=== PATIENT | male | born 1970 | race Caucasian/White ===

== ENCOUNTER 2017-09-27 12:48 | Observation (INO) ==
--- NOTE | 2017-09-27 13:05 | Emergency Department Note ---
Disposition Clinical Impression: Thrombocytopenia, Abnormal laboratory test result Cirrhosis Qualifiers: Hepatic cirrhosis type: unspecified hepatic cirrhosis Change in mental status Qualifiers: Altered mental status type: disorientation Qualified Code(s): R41.0 - Disorientation, unspecified Disposition: Admitted As Inpatient Condition: Good Referrals: NONE,PCP [Non-Partnered Physician] - Forms: ED Satisfaction Letter Time of Disposition: 14:45 Neuro HPI - General Chief Complaint: ED Neuro Symptoms/Deficit Stated Complaint: trouble remembering stuff Time Seen by Provider: 09/27/17 13:05 Source: patient, family Limitations: other Nursing Notes Reviewed: Yes Vital Signs Reviewed: Yes - History of Present Illness HPI Narrative: Patient states that he was hospitalized last week discharged Wednesday for pancreatitis. Had been seen here earlier. Was told he has cirrhosis, mild. Remote alcohol use not used for years. Other drugs. Discharged on Zofran and omeprazole. states he is just talks lower his response times her down he's not remembering things. Onset of Symptoms Date: 09/25/17 Symptom Onset Unknown: No Symptoms Improving: No Improves with: none Worsens with: none Context: gradual onset Associated symptoms: Reports: confusion. Denies: cough, diaphoresis, fever/ chills, headaches, loss of appetite, malaise, nausea/vomiting, shortness of breath, syncope, weakness Treatments Prior to Arrival: none - Related Data Home Medications: Previous Rx's Medication Instructions Recorded Omeprazole [PriLOSEC] 40 mg PO DAILY #30 cap 09/24/17 Ondansetron HCl [Zofran] 4 mg PO Q8HR PRN #15 tablet 09/24/17 Allergies/Adverse Reactions: Allergies Allergy/AdvReac Type Severity Reaction Status Date / Time No Known Allergies Allergy Verified 09/27/17 12:50 All systems ED: reviewed and negative except as stated. Constitutional: Denies: fever, chills Eyes: Denies: vision change ENT ED: Denies: throat pain Cardiovascular: Denies: chest pain, palpitations Respiratory: Denies: cough, dyspnea Gastrointestinal: Denies: abdominal pain, nausea, vomiting Genitourinary: Denies: dysuria Integumentary: Denies: rash Neurological: Reports: confusion. Denies: headache, numbness, paresthesias Endocrine: Reports: fatigue Hematological/Lymphatic: Denies: easy bleeding, easy bruising Past Medical History - Past Medical History Medical history: Reports: no medical history Surgical history: Reports: no surgical history Psychiatric history: Reports: no psych history - Social History Smoking Status: Never smoker Smokeless Tobacco Status: No Alcohol use: Reports: rarely Drug use: Reports: none Physical Exam - General Limitations: other General appearance: alert - Eye Eye exam: Present: EOMI. Absent: scleral icterus, conjunctival injection - ENT ENT exam: normal oropharynx, mucous membranes moist - Respiratory Respiratory exam: Present: normal lung sounds bilaterally. Absent: wheezes, stridor - Cardiovascular Cardiovascular exam: Present: regular rate, normal rhythm - Abdominal Exam Abdominal exam: Present: soft, Non-Tender. Absent: guarding, rebound - Extremities Exam Extremities exam: Absent: tenderness, pedal edema, calf tenderness - Back Exam Back exam: Absent: tenderness - Neurological Exam Neurological exam: Present: alert, CN II-XII intact. Absent: oriented X3 ( Oriented to person place not time) - Psychiatric Psychiatric exam: Absent: normal mood, depressed - Skin Skin exam: Present: warm. Absent: diaphoresis Course Course Narrative: Discussed with Dr. Gomez will admit the patient. Labs lactulose. Vital Signs Temperature 98.1 F 09/27/17 12:50 Pulse Rate 89 09/27/17 12:50 Respiratory Rate 17 09/27/17 12:50 Blood Pressure 166/92 09/27/17 12:50 O2 Sat by Pulse Oximetry 95 09/27/17 12:50 Temperature 98.1 F 09/27/17 12:50 Pulse Rate 90 09/27/17 14:15 Respiratory Rate 17 09/27/17 14:15 Blood Pressure 173/83 09/27/17 14:15 O2 Sat by Pulse Oximetry 96 09/27/17 14:15 Oxygen Delivery Oxygen Delivery Room Air Neuro Symptoms/Deficit - Lab Data Result diagrams: 09/27/17 13:40 09/27/17 13:40 Lab Results 09/27/17 09/27/17 09/27/17 Range/Units 13:40 13:40 13:40 WBC 6.7 (4.3-11.1) K/mcL RBC 4.17 L (4.19-5.50) M/mcL Hgb 14.4 D (12.9-16.9) g/dL Hct 41.8 (37.5-50.1) % MCV 100.2 H (83.0-100.0) fL MCH 34.5 H (28.0-33.3) pg MCHC 34.4 (31.6-35.5) g/dL RDW 14.6 H (11.5-14.5) % Plt Count 120 L (140-400) K/mcL MPV 9.9 (9.4-12.4) fL Immature Gran % 0.3 (0-4) % Seg Neutrophils % 54.6 % Lymphocytes % 26.4 % Monocytes % 9.5 % Eosinophils % 7.6 % Basophils % 1.6 % Neutrophils # 3.7 (1.6-8.9) K/mcL Lymphocytes # 1.8 (0.6-4.6) K/mcL Monocytes # 0.6 (0.0-1.3) K/mcL Eosinophils # 0.5 (0.0-0.6) K/mcL Basophils # 0.1 (0.0-0.2) K/mcL PT (9.4-12.1) Seconds INR APTT (26.0-36.0) Seconds Sodium 140 (136-145) mEq/L Potassium 3.7 (3.5-5.1) mEq/L Chloride 109 H (98-107) mEq/L Carbon Dioxide 22 L (23-29) mEq/L BUN 7 (6-20) mg/dL Creatinine 0.55 L (0.70-1.30) mg/dL Est GFR ( Amer) > 60 (> 60) Est GFR (Non-Af Amer) > 60 (> 60) BUN/Creatinine Ratio 13 (6-26) Glucose 120 H (70-105) mg/dL Calculated Osmolality 289 (280-300) Calcium 9.5 (8.6-10.3) mg/dL Total Bilirubin 1.4 H (0.3-1.0) mg/dL Direct Bilirubin 0.3 H (0.0-0.2) mg/dL Indirect Bilirubin 1.1 (0.0-1.2) mg/dL AST 87 H (13-39) Units/L ALT 55 H (7-52) Units/L Alkaline Phosphatase 170 H (34-104) Units/L Ammonia (16-53) mcmol/L Serum Total Protein 7.6 (6.4-8.9) g/dL Albumin 3.2 L (3.5-5.7) g/dL Globulin 4.4 H (2.4-3.5) g/dL Albumin/Globulin Ratio 0.7 L (1.1-2.2) Lipase (11-82) Units/L 09/27/17 09/27/17 09/27/17 Range/Units 13:40 13:40 13:40 WBC (4.3-11.1) K/mcL RBC (4.19-5.50) M/mcL Hgb (12.9-16.9) g/dL Hct (37.5-50.1) % MCV (83.0-100.0) fL MCH (28.0-33.3) pg MCHC (31.6-35.5) g/dL RDW (11.5-14.5) % Plt Count (140-400) K/mcL MPV (9.4-12.4) fL Immature Gran % (0-4) % Seg Neutrophils % % Lymphocytes % % Monocytes % % Eosinophils % % Basophils % % Neutrophils # (1.6-8.9) K/mcL Lymphocytes # (0.6-4.6) K/mcL Monocytes # (0.0-1.3) K/mcL Eosinophils # (0.0-0.6) K/mcL Basophils # (0.0-0.2) K/mcL PT 14.6 H (9.4-12.1) Seconds INR 1.3 APTT 26.2 (26.0-36.0) Seconds Sodium (136-145) mEq/L Potassium (3.5-5.1) mEq/L Chloride (98-107) mEq/L Carbon Dioxide (23-29) mEq/L BUN (6-20) mg/dL Creatinine (0.70-1.30) mg/dL Est GFR ( Amer) (> 60) Est GFR (Non-Af Amer) (> 60) BUN/Creatinine Ratio (6-26) Glucose (70-105) mg/dL Calculated Osmolality (280-300) Calcium (8.6-10.3) mg/dL Total Bilirubin (0.3-1.0) mg/dL Direct Bilirubin (0.0-0.2) mg/dL Indirect Bilirubin (0.0-1.2) mg/dL AST (13-39) Units/L ALT (7-52) Units/L Alkaline Phosphatase (34-104) Units/L Ammonia 119 H (16-53) mcmol/L Serum Total Protein (6.4-8.9) g/dL Albumin (3.5-5.7) g/dL Globulin (2.4-3.5) g/dL Albumin/Globulin Ratio (1.1-2.2) Lipase 55 (11-82) Units/L - Radiology Data Radiology results reviewed: Yes I reviewed the patient's radiology results. HISTORY: ORDERING SYSTEM PROVIDED HISTORY: trauma with headaches FINDINGS: BRAIN/VENTRICLES: There is no acute intracranial hemorrhage, mass effect or midline shift. No abnormal extra-axial fluid collection. The ochoa-white differentiation is maintained without evidence of an acute infarct. There is no evidence of hydrocephalus. ORBITS: The visualized portion of the orbits demonstrate no acute abnormality. SINUSES: The visualized paranasal sinuses and mastoid air cells demonstrate no acute abnormality. SOFT TISSUES/SKULL: No acute abnormality of the visualized skull or soft tissues. CT/CT head/brain wo con IMPRESSION: 1. No acute intracranial abnormality. D/ / Tylor Aguilar MD / Tylor Aguilar MD Interpreting Provider: Tylor Aguilar MD : TPA Checklist - LKW: 3-4.5 hrs Add. Warnings/Precautions Patient/family understanding: The patient/family members have been counseled and understood the risk, benefit , and alternatives of treatment.
[2017-09-27 13:45] LABS: Basophils # 0.1 K/mcL (0.0-0.2); Basophils % 1.6 %; Eosinophils # 0.5 K/mcL (0.0-0.6); Eosinophils % 7.6 %; Hematocrit 41.8 % (37.5-50.1); Hemoglobin 14.4 g/dL (12.9-16.9); Immature Granulocytes % 0.3 % (0-4); Lymphocytes # 1.8 K/mcL (0.6-4.6); Lymphocytes % 26.4 %; Mean Corpuscular HGB Conc 34.4 g/dL (31.6-35.5); Mean Corpuscular Hemoglobin 34.5 pg (28.0-33.3); Mean Corpuscular Volume 100.2 fL (83.0-100.0); Mean Platelet Volume 9.9 fL (9.4-12.4); Monocytes # 0.6 K/mcL (0.0-1.3); Monocytes % 9.5 %; Neutrophils # 3.7 K/mcL (1.6-8.9); Platelet Count 120 K/mcL (140-400); Red Blood Count 4.17 M/mcL (4.19-5.50); Red Cell Distribution Width 14.6 % (11.5-14.5); Segmented Neutrophils % 54.6 %
[2017-09-27 13:51] LABS: INR 1.3; Prothrombin Time 14.6 Seconds (9.4-12.1)
[2017-09-27 13:54] LABS: Activated Partial Thrombo Time 26.2 Seconds (26.0-36.0)
[2017-09-27 14:05] LABS: Albumin 3.2 g/dL (3.5-5.7); Albumin/Globulin Ratio 0.7 (1.1-2.2); Bilirubin,Direct 0.3 mg/dL (0.0-0.2); Bilirubin,Indirect 1.1 mg/dL (0.0-1.2); Bilirubin,Total 1.4 mg/dL (0.3-1.0); Globulin 4.4 g/dL (2.4-3.5); Total Protein 7.6 g/dL (6.4-8.9)
[2017-09-27 14:21] LABS: BUN/Creatinine Ratio 13 (6-26); Blood Urea Nitrogen 7 mg/dL (6-20); Calcium 9.5 mg/dL (8.6-10.3); Carbon Dioxide 22 mEq/L (23-29); Chloride 109 mEq/L (98-107); Glucose 120 mg/dL (70-105); Osmolality,Calculated 289 (280-300); Potassium 3.7 mEq/L (3.5-5.1); Sodium 140 mEq/L (136-145); eGFR For Non-African Americans > 60 (> 60)
[2017-09-27] MEDS ORDERED: Naloxone 0.4 MG/ML INJ IVP PRN (14:53)
[2017-09-27 16:10] LABS: Bilirubin,Urine Negative (Negative); Blood,Urine Negative (Negative); Clarity,Urine Clear (Clear); Color,Urine Yellow (Yellow); Glucose,Urine (UA) Normal (Normal); Ketones,Urine Negative (Negative); Leukocyte Esterase,Urine Negative (Negative); Nitrite,Urine Negative (Negative); Protein,Urine Negative (Neg-Trace); Urobilinogen,Urine Normal (Normal)
[2017-09-27 16:22] LABS: Amphetamine Screen,Urine Negative ng/mL (Cutoff=1000); Barbiturate Screen,Urine Negative ng/mL (Cutoff=200); Benzodiazepines Screen,Urine Positive ng/mL (Cutoff=200); Cannabinoid Screen,Urine Negative ng/mL (Cutoff = 50); Cocaine Screen,Urine Negative ng/mL (Cutoff= 300); Opiate Screen,Urine Negative ng/mL (Cutoff=300); Phencyclidine Screen,Urine Negative ng/mL (Cutoff=25)
--- NOTE | 2017-09-27 17:15 | Internal Med History&Physical ---
Date of Encounter: 09/27/17 Time of Encounter: 16:30 Assessment and Plan (1) Cirrhosis of liver Current visit: Yes Status: Acute Suspect primarily due to alcohol ingestion. Will check viral hepatitis serologies. He was started on lactulose and rifaximin for mild encephalopathy. Qualifiers: Hepatic cirrhosis type: unspecified hepatic cirrhosis Ascites presence: without ascites Qualified Code(s): K74.60 - Unspecified cirrhosis of liver (2) Macrocytosis Current visit: Yes Status: Acute Will order macrocytosis workup. (3) Hypertension Current visit: Yes Status: Acute Will start on nadolol since he has hypertension, borderline tachycardia, and documented esophageal varices. Qualifiers: Hypertension type: essential hypertension Qualified Code(s): I10 - Essential (primary) hypertension Internal Medicine - H&P: HPI Chief complaint: Confusion Admitted From: Emergency Dept Plans for Post Hospital Care: Home History of present illness: Mr. Henriquez is a 47 year old male who was brought to the emergency room after family noted him to be more confused over the preceding 1-2 days. He had been hospitalized at [facility] September 23- after presenting with abdominal discomfort and GI bleeding. CT of the abdomen/pelvis showed cirrhosis and splenomegaly with portal hypertension and esophageal varices. He had EGD 09/23/2017 which showed nonbleeding gastric erosions and esophageal varices. Abdominal ultrasound showed findings consistent with hepatic cirrhosis. He was treated medically and scheduled to follow-up with director manufacturing engineering 10/06/2017. Workup in emergency room today showed elevated ammonia level and slight confusion. He was admitted to [facility] floor for ongoing care needs. He is a fair historian and much of the history is provided by family. He has not seen a regular family physician in approximately 20 years. He has been a binge drinker since age 13. He was diagnosed with pancreatitis of uncertain etiology during his recent [facility] stay. He denies other disorders of his liver or gallbladder. He had EGD as per above. He has not had colonoscopy. Denies IV drug use history. He reports his mother was diagnosed with fatty liver disease prior to her . Past Med Surg Social Fam HX - Past Medical History Medical history: no medical history Psychiatric history: no psych history - Past Surgical History Surgical History: no surgical history - Social History Smoking Status: Never smoker Smokeless Tobacco Status: No Alcohol use: rarely Drug use: none Internal Medicine - H&P: Meds Omeprazole [PriLOSEC] 40 mg PO DAILY #30 cap 09/24/17 [Rx] Ondansetron HCl [Zofran] 4 mg PO Q8HR PRN #15 tablet 09/24/17 [Rx] 3 Allergy/AdvReac Type Severity Reaction Status Date / Time No Known Allergies Allergy Verified 09/27/17 12:50 All Systems PM: A 10-system review of systems was performed and is negative for pertinent findings except as documented above in the HPI. Review of systems: Gen.: His weight has increased approximately 50 pounds in the past year, unintentional Cardiovascular: He denies hypertension VT heart failure angina DVT or pulmonary embolus. Respiratory: He is a lifelong nonsmoker and has no documented chronic lung disease other than asthma in childhood GI: As per history of present illness : Denies hematuria dysuria or kidney stones Neurologic: He denies large distribution strokes or seizures Endocrine: He denies diabetes thyroid disease or hyperlipidemia Hematology/oncology: He had anemia in childhood. 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 He had left carpal tunnel surgery. He denies gout or other bone joint or muscle disorders. - Constitutional Vitals: Temp Pulse Resp BP Pulse Ox 97.4 F L 85 18 157/83 97 09/27/17 15:35 09/27/17 15:35 09/27/17 15:35 09/27/17 15:35 09/27/17 15:35 Exam: General: He is a well-developed overweight male lying in bed who appears in no acute distress HEENT: Head is atraumatic and normocephalic. Eyes: EOMI. There is no scleral icterus. Mouth: Mucosa is moist. Neck: Supple and nontender. There is no thyromegaly or adenopathy noted. Heart: Regular with rate approximately 100/m. Lungs: No wheezes or crackles are heard. Abdomen: Soft and nontender. No masses or guarding are noted. Extremities: There is no cyanosis edema or clubbing noted. Dorsalis pedis and posttibial pulses are trace to 1+ palpable bilaterally. Neurologic: Mental status: He is talkative and a fair historian. Cranial nerves : Smile is symmetric. Forehead wrinkles bilaterally. Tongue protrudes midline. EOMI. Motor: There is no pronator drift. There is no asterixis. Cerebellar: Finger to nose is intact bilaterally. Skin: Warm and dry. There are no malar telangiectasias seen or enlarged abdominal wall vessels. Internal Med - H&P Results - Labs CBC & Chem 7: 09/27/17 13:40 09/27/17 13:40 Labs: Urine 09/27/17 Range/Units 16:00 Urine Color Yellow (Yellow) Urine Clarity Clear (Clear) Urine pH 7.0 (5.0-8.0) pH Units Ur Specific [place] 1.020 (1.010-1.025) Urine Protein Negative (Neg-Trace) mg/dL Urine Glucose (UA) Normal (Normal) mg/dL - VTE Reasons for not Prescribing Prophylaxis: Treatment not Indicated - Low risk for VTE
[2017-09-27] MEDS: Lactulose Oral Soln 20 GM/30 ML UDC PO SCH (21:28)
[2017-09-28 06:22] LABS: Chol/HDL Ratio 4.2 (0-4.9); Magnesium 1.9 mg/dL (1.6-2.6)
[2017-09-28 08:03] LABS: Thyroid Stimulating Hormone 2.775 mcIU/mL (0.340-5.600)
[2017-09-28] MEDS: Lactulose Oral Soln 20 GM/30 ML UDC PO SCH ×2 (08:51→21:12)
[2017-09-28 12:32] LABS: Folate 11.5 ng/mL (3.0-16.0)
[2017-09-28 12:33] LABS: Vitamin B12 1028 pg/mL (250-1100)
--- NOTE | 2017-09-28 15:26 | Internal Med Progress Note ---
Date of Encounter: 09/28/17 Time of Encounter: 15:18 - Assessment and plan (1) Cirrhosis of liver Current Visit: Yes Status: Acute Assessment and plan: September 28. Hepatitis profile pending. Continue lactulose and rifaximin. Recheck labs in a.m. Qualifiers: Hepatic cirrhosis type: unspecified hepatic cirrhosis Ascites presence: without ascites Qualified Code(s): K74.60 - Unspecified cirrhosis of liver (2) Macrocytosis Current Visit: Yes Status: Acute Assessment and plan: Workup negative for pathology other than liver disease. (3) Hypertension Current Visit: Yes Status: Acute Assessment and plan: September 28. Blood pressure heart rate improved. Continue nadolol. Qualifiers: Hypertension type: essential hypertension Qualified Code(s): I10 - Essential (primary) hypertension - Subjective Interval history: September 28. He has no new complaints. - Constitutional Vitals: Temp Pulse Resp BP Pulse Ox 98.5 F 78 17 128/73 97 09/28/17 15:04 09/28/17 15:04 09/28/17 15:04 09/28/17 15:04 09/28/17 15:04 Exam: He is resting in bed and appears in no acute distress. His affect is cheerful. He answered questions with short answers appropriately. I reviewed his medications and lab results. Viral hepatitis profile is pending. Ammonia level has actually risen. Internal Medicine: Result - Labs CBC & Chem 7: 09/27/17 13:40 09/27/17 13:40 Labs: Urine 09/27/17 Range/Units 16:00 Urine Color Yellow (Yellow) Urine Clarity Clear (Clear) Urine pH 7.0 (5.0-8.0) pH Units Ur Specific [place] 1.020 (1.010-1.025) Urine Protein Negative (Neg-Trace) mg/dL Urine Glucose (UA) Normal (Normal) mg/dL - ABG Interpretation ABG results: PT/INR, D-dimer PT 14.6 Seconds (9.4-12.1) H 09/27/17 13:40 - VTE Reasons for not Prescribing Prophylaxis: Treatment not Indicated - Low risk for VTE Consult Discharge Plan - Plan Referrals: Lissette Mayberry, [employer] [Primary Care Provider] - 1 week
[2017-09-29 05:13] LABS: Hepatitis A Antibody IgM Nonreactive (Nonreactive); Hepatitis B Core IgM Nonreactive (Nonreactive); Hepatitis B Surface Antigen Nonreactive (Nonreactive); Hepatitis C Virus Antibody Nonreactive (Nonreactive)
[2017-09-29 05:38] LABS: Alanine Aminotransferase 52 Units/L (7-52); Albumin 2.9 g/dL (3.5-5.7); Albumin/Globulin Ratio 0.7 (1.1-2.2); Alkaline Phosphatase 120 Units/L (34-104); Aspartate Amino Transferase 82 Units/L (13-39); Bilirubin,Total 1.4 mg/dL (0.3-1.0); Calcium 8.8 mg/dL (8.6-10.3); Carbon Dioxide 27 mEq/L (23-29); Chloride 108 mEq/L (98-107); Glucose 140 mg/dL (70-105); Potassium 3.5 mEq/L (3.5-5.1); Sodium 137 mEq/L (136-145); Total Protein 6.9 g/dL (6.4-8.9); eGFR For Non-African Americans > 60 (> 60)
[2017-09-29 06:13] LABS: BUN/Creatinine Ratio 14 (6-26); Blood Urea Nitrogen 8 mg/dL (6-20); Osmolality,Calculated 285 (280-300)
[2017-09-29 08:37] VITALS: BP 135/74
[2017-09-29] MEDS: Lactulose Oral Soln 20 GM/30 ML UDC PO SCH (08:38)
--- NOTE | 2017-09-29 10:18 | Discharge Summary ---
Date of Encounter: 09/29/17 Time of Encounter: 10:10 - Discharge Diagnosis (1) Cirrhosis of liver Priority: Primary Status: Acute Qualifiers: Hepatic cirrhosis type: unspecified hepatic cirrhosis Ascites presence: without ascites Qualified Code(s): K74.60 - Unspecified cirrhosis of liver (2) Macrocytosis Priority: Secondary Status: Acute (3) Hypertension Priority: Secondary Status: Acute Qualifiers: Hypertension type: essential hypertension Qualified Code(s): I10 - Essential (primary) hypertension - Discharge Medications Prescriptions: Lactulose 20 gm PO BID 30 Days udc Nadolol [Corgard] 20 mg PO BID #30 tablet Rifaximin [Xifaxan] 550 mg PO BID #60 tablet Home Medications: Omeprazole [PriLOSEC] 40 mg PO DAILY #30 cap 09/24/17 [Rx] Ondansetron HCl [Zofran] 4 mg PO Q8HR PRN #15 tablet 09/24/17 [Rx] Lactulose 20 gm PO BID 30 Days udc 09/29/17 [Rx] Nadolol [Corgard] 20 mg PO BID #30 tablet 09/29/17 [Rx] Rifaximin [Xifaxan] 550 mg PO BID #60 tablet 09/29/17 [Rx] Allergies/Adverse Reactions: 3 Allergy/AdvReac Type Severity Reaction Status Date / Time No Known Allergies Allergy Verified 09/27/17 12:50 Date of admission: 09/27/17 15:15 Primary care physician: Lissette Mayberry CNP - Patient Status Disposition: Home, Self-Care Functional capacity at discharge: independent ambulation Overall status at discharge: patient is progressing back to baseline - Discharge Instructions Follow Up With: Lissette Mayberry CNP [Primary Care Provider] - 1 week - Diet and Activity Activity: resume usual activities as tolerated Diet: low fat, low cholesterol Hospital course: Mr. Henriquez is a 47 year old male who was brought to the emergency room after family noted him to be more confused over the preceding 1-2 days. He had been hospitalized at [facility] September 23- after presenting with abdominal discomfort and GI bleeding. CT of the abdomen/pelvis showed cirrhosis and splenomegaly with portal hypertension and esophageal varices. He had EGD 09/23/2017 which showed nonbleeding gastric erosions and esophageal varices. Abdominal ultrasound showed findings consistent with hepatic cirrhosis. He was treated medically and scheduled to follow-up with auto mechanic supervisor 10/06/2017. Workup in emergency room today showed elevated ammonia level and slight confusion. He was admitted to [facility] floor for ongoing care needs. Initial orders were written by the emergency room physician. I saw him on 09/27 and performed a history and physical. He was started on lactulose and rifaximin for cirrhosis with mild hepatic encephalopathy. He had clinical improvement with improved mental status and less lethargy by day of discharge. Ammonia level decreased to 107 by day of discharge. Bilirubin and LFTs remained slightly elevated. Viral hepatitis serologies returned negative. I explained the etiology of the cirrhosis was not determined at discharge. He will follow with the [place] auto mechanic supervisor as scheduled 10/06/2017. Macrocytosis workup showed normal B12, folate, and TSH. Macrocytosis is likely due to liver disease. Nadolol was started for hypertension and documented esophageal varices. This was tolerated well and he will continue this at home. He will follow with his PCP Lissette Mayberry CNP within 1 week. He will see Dr. Lester as scheduled in 1 week. I encouraged him to completely discontinue alcohol use. - Time Spent with Patient Total time spent providing and/or coordinating discharge services: - Constitutional Vitals: Temp Pulse Resp BP Pulse Ox 98.1 F 80 20 135/74 95 09/29/17 08:36 09/29/17 08:36 09/29/17 08:36 09/29/17 08:36 09/29/17 08:36 - VTE Reasons for not Prescribing Prophylaxis: Treatment not Indicated - Low risk for VTE
== END 2017-09-29 11:08 | disposition home or self-care (01) ==
LOC: EMEROOPIK 12:48 → INPPIK 12:48
PROVIDERS: ADMIT Internal Medicine; ATTEND Internal Medicine

== ENCOUNTER 2018-12-03 12:20 | Observation (INO) ==
--- NOTE | 2018-12-03 12:31 | Emergency Department Note ---
Disposition Clinical Impression: Diabetes mellitus, new onset Disposition: Admitted As Inpatient Condition: Fair Referrals: NONE,PCP [Primary Care Provider] - Forms: ED Satisfaction Letter Time of Disposition: 13:23 ( will place in observation) General Adult HPI - General Chief complaint: ED Nausea/Vomiting/Diarrhea Stated complaint: vomiting, mouth dry, freq urinations Time Seen by Provider: 12/03/18 12:30 Source: patient Mode of arrival: ambulatory Limitations: no limitations Nursing Notes Reviewed: Yes Vital Signs Reviewed: Yes - History of Present Illness HPI Narrative: 48-year-old male with 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 He also complains of retaining fluid. Patient is on lactulose for hepatic encephalopathy, and reports that he took 2 doses of his lactulose prior to coming in and that he is still feeling confused. Patient denies any chest pain or shortness of breath. He seems to be able to answer questions appropriately. Patient has been complaining of feeling thirsty nauseated. He did not know that he is a diabetic. 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 Location: other Radiation: non-radiation Consistency: intermittent Improves with: nothing Worsens with: nothing Associated symptoms: Reports: denies other symptoms Treatments Prior to Arrival: none - Related Data Home Medications Medication Instructions Recorded Confirmed Rifaximin [Xifaxan] 550 mg PO BID 10/22/17 12/03/18 Multivitamin [One Daily 1 each PO DAILY 11/10/17 12/03/18 Multivitamin] Atorvastatin Calcium [Lipitor] 20 mg PO DAILY 12/03/18 12/03/18 Bumetanide 2 mg PO BID 12/03/18 12/03/18 Escitalopram [Lexapro] 10 mg PO DAILY 12/03/18 12/03/18 Lactulose [Enulose] 60 gm PO TID 12/03/18 12/03/18 Pantoprazole Sodium [Protonix] 40 mg PO TID 12/03/18 12/03/18 Spironolactone [Aldactone] 150 mg PO BID 12/03/18 12/03/18 Zinc Gluconate 100 mg PO BID 12/03/18 12/03/18 Allergies Allergy/AdvReac Type Severity Reaction Status Date / Time No Known Allergies Allergy Verified 12/03/18 12:22 Past Medical History - Past Medical History Medical history: Reports: cirrhosis, GERD, hypertension Surgical history: Reports: orthopedic, other, other Psychiatric history: Reports: depression - Social History Smoking Status: Never smoker Smokeless Tobacco Status: No Alcohol use: Reports: none Drug use: Reports: none Course Vital Signs Temperature 98 F 12/03/18 12:24 Pulse Rate 99 12/03/18 12:24 Respiratory Rate 18 12/03/18 12:24 Blood Pressure 150/85 12/03/18 12:24 O2 Sat by Pulse Oximetry 97 12/03/18 12:24 Temperature 98 F 12/03/18 12:24 Pulse Rate 92 12/03/18 12:52 Respiratory Rate 18 12/03/18 12:30 Blood Pressure 130/65 12/03/18 12:52 O2 Sat by Pulse Oximetry 96 12/03/18 12:30 Oxygen Delivery Oxygen Delivery Room Air Medical Decision Making - Lab Data Result diagrams: 12/03/18 12:42 12/03/18 12:42 Lab Results 12/03/18 12/03/18 12/03/18 Range/Units 12:42 12:42 12:42 WBC 5.2 (4.3-11.1) K/mcL RBC 3.25 L (4.19-5.50) M/mcL Hgb 10.4 L (12.9-16.9) g/dL Hct 30.7 L (37.5-50.1) % MCV 94.5 (83.0-100.0) fL MCH 32.0 (28.0-33.3) pg MCHC 33.9 (31.6-35.5) g/dL RDW 13.6 (11.5-14.5) % Plt Count 64 L (140-400) K/mcL MPV 9.6 (9.4-12.4) fL Immature Gran % 0.6 (0-4) % Seg Neutrophils % 66.7 % Lymphocytes % 17.6 % Monocytes % 10.8 % Eosinophils % 3.3 % Basophils % 1.0 % Neutrophils # 3.5 (1.6-8.9) K/mcL Lymphocytes # 0.9 (0.6-4.6) K/mcL Monocytes # 0.6 (0.0-1.3) K/mcL Eosinophils # 0.2 (0.0-0.6) K/mcL Basophils # 0.1 (0.0-0.2) K/mcL Sodium 128 L (136-145) mEq/L Potassium 4.1 (3.5-5.1) mEq/L Chloride 93 L (98-107) mEq/L Carbon Dioxide 28 (23-29) mEq/L BUN 12 (6-20) mg/dL Creatinine 0.84 (0.70-1.30) mg/dL Est GFR ( Amer) > 60 (> 60) Est GFR (Non-Af Amer) > 60 (> 60) BUN/Creatinine Ratio 14 (6-26) Glucose 589 H* (70-105) mg/dL Calculated Osmolality 293 (280-300) Calcium 9.2 (8.6-10.3) mg/dL Total Bilirubin 2.5 H (0.3-1.0) mg/dL AST 62 H (13-39) Units/L ALT 55 H (7-52) Units/L Alkaline Phosphatase 236 H (34-104) Units/L Ammonia 79 H (16-53) mcmol/L Serum Total Protein 6.6 (6.4-8.9) g/dL Albumin 2.8 L (3.5-5.7) g/dL Globulin 3.8 H (2.4-3.5) g/dL Albumin/Globulin Ratio 0.7 L (1.1-2.2) Amylase (29-103) Units/L Lipase (11-82) Units/L Beta-Hydroxybutyric Acd (0.02-0.27) mmol/L 12/03/18 12/03/18 Range/Units 12:42 12:42 WBC (4.3-11.1) K/mcL RBC (4.19-5.50) M/mcL Hgb (12.9-16.9) g/dL Hct (37.5-50.1) % MCV (83.0-100.0) fL MCH (28.0-33.3) pg MCHC (31.6-35.5) g/dL RDW (11.5-14.5) % Plt Count (140-400) K/mcL MPV (9.4-12.4) fL Immature Gran % (0-4) % Seg Neutrophils % % Lymphocytes % % Monocytes % % Eosinophils % % Basophils % % Neutrophils # (1.6-8.9) K/mcL Lymphocytes # (0.6-4.6) K/mcL Monocytes # (0.0-1.3) K/mcL Eosinophils # (0.0-0.6) K/mcL Basophils # (0.0-0.2) K/mcL Sodium (136-145) mEq/L Potassium (3.5-5.1) mEq/L Chloride (98-107) mEq/L Carbon Dioxide (23-29) mEq/L BUN (6-20) mg/dL Creatinine (0.70-1.30) mg/dL Est GFR ( Amer) (> 60) Est GFR (Non-Af Amer) (> 60) BUN/Creatinine Ratio (6-26) Glucose (70-105) mg/dL Calculated Osmolality (280-300) Calcium (8.6-10.3) mg/dL Total Bilirubin (0.3-1.0) mg/dL AST (13-39) Units/L ALT (7-52) Units/L Alkaline Phosphatase (34-104) Units/L Ammonia (16-53) mcmol/L Serum Total Protein (6.4-8.9) g/dL Albumin (3.5-5.7) g/dL Globulin (2.4-3.5) g/dL Albumin/Globulin Ratio (1.1-2.2) Amylase 15 L (29-103) Units/L Lipase 67 (11-82) Units/L Beta-Hydroxybutyric Acd 0.21 (0.02-0.27) mmol/L
[2018-12-03 12:48] LABS: Basophils # 0.1 K/mcL (0.0-0.2); Eosinophils # 0.2 K/mcL (0.0-0.6); Eosinophils % 3.3 %; Hematocrit 30.7 % (37.5-50.1); Hemoglobin 10.4 g/dL (12.9-16.9); Immature Granulocytes % 0.6 % (0-4); Lymphocytes # 0.9 K/mcL (0.6-4.6); Lymphocytes % 17.6 %; Mean Corpuscular HGB Conc 33.9 g/dL (31.6-35.5); Mean Corpuscular Volume 94.5 fL (83.0-100.0); Mean Platelet Volume 9.6 fL (9.4-12.4); Monocytes # 0.6 K/mcL (0.0-1.3); Monocytes % 10.8 %; Neutrophils # 3.5 K/mcL (1.6-8.9); Red Blood Count 3.25 M/mcL (4.19-5.50); Red Cell Distribution Width 13.6 % (11.5-14.5); Segmented Neutrophils % 66.7 %
[2018-12-03 12:49] LABS: Platelet Count 64 K/mcL (140-400)
[2018-12-03 13:02] LABS: Amylase 15 Units/L (29-103); Lipase 67 Units/L (11-82)
[2018-12-03 13:06] LABS: Alanine Aminotransferase 55 Units/L (7-52); Albumin 2.8 g/dL (3.5-5.7); Albumin/Globulin Ratio 0.7 (1.1-2.2); Alkaline Phosphatase 236 Units/L (34-104); Aspartate Amino Transferase 62 Units/L (13-39); BUN/Creatinine Ratio 14 (6-26); Bilirubin,Total 2.5 mg/dL (0.3-1.0); Blood Urea Nitrogen 12 mg/dL (6-20); Calcium 9.2 mg/dL (8.6-10.3); Carbon Dioxide 28 mEq/L (23-29); Chloride 93 mEq/L (98-107); Globulin 3.8 g/dL (2.4-3.5); Glucose 589 mg/dL (70-105); Osmolality,Calculated 293 (280-300); Potassium 4.1 mEq/L (3.5-5.1); Sodium 128 mEq/L (136-145); Total Protein 6.6 g/dL (6.4-8.9); eGFR For Non-African Americans > 60 (> 60)
[2018-12-03] MEDS ORDERED: 0.9 % Sodium Chloride 1,000 ML IVC ONE (13:06)
[2018-12-03] MEDS ORDERED: Insulin Human Regular 10 UNIT in 0.9 % Sodium Chloride 10 ML IV ONE (13:06)
[2018-12-03] MEDS ORDERED: Naloxone 0.4 MG/ML INJ IVP PRN ×2 (13:26→14:09)
[2018-12-03] MEDS ORDERED: Ondansetron 4 MG/2 ML VIAL IVP PRN ×2 (13:26→14:09)
[2018-12-03 15:02] LABS: Bilirubin,Urine Negative (Negative); Blood,Urine Small (Negative); Clarity,Urine Clear (Clear); Color,Urine Yellow (Yellow); Glucose,Urine (UA) 500 mg/dL (Normal); Ketones,Urine Negative (Negative); Leukocyte Esterase,Urine Negative (Negative); Nitrite,Urine Negative (Negative); Protein,Urine Negative (Neg-Trace); Urobilinogen,Urine Normal (Normal)
[2018-12-03 15:23] LABS: Bacteria,Urine Few per hpf (None-Few); Granular Casts,Urine Few per lpf (None Seen); Hyaline Casts,Urine Few per lpf (None-Few); RBC,Urine 0-3 per hpf (0-3); Squamous Epithelial Cell,Urine Few per lpf (None-Few); WBC,Urine 0-3 per hpf (0-3)
[2018-12-03] MEDS: Lactulose Oral Soln 20 GM/30 ML UDC PO SCH ×2 (17:02→21:09)
--- NOTE | 2018-12-03 18:25 | Internal Med History&Physical ---
Date of Encounter: 12/03/18 Time of Encounter: 17:30 Assessment and Plan (1) Diabetes mellitus, new onset Current visit: Yes Status: Acute Duration unknown. He will be started on metformin and Januvia. Accu-Cheks with SSI will be ordered. (2) Cirrhosis of liver Current visit: No Status: Acute Continue Xifaxan and lactulose. Qualifiers: Hepatic cirrhosis type: unspecified hepatic cirrhosis Ascites presence: with ascites Qualified Code(s): K74.60 - Unspecified cirrhosis of liver; R18.8 - Other ascites (3) Hypertension Current visit: No Status: Acute Continue Aldactone. Bumex will be given IV initially to improve diuresis. Qualifiers: Hypertension type: essential hypertension Qualified Code(s): I10 - Essential (primary) hypertension (4) Hyperammonemia Current visit: No Status: Acute Continue Xifaxan and lactulose as above. Internal Medicine - H&P: HPI Chief complaint: Confusion, fluid retention Admitted From: Emergency Dept Plans for Post Hospital Care: Home History of present illness: Mr. Henriquez is a 48 year old male who came to emergency room for evaluation stating he had lethargy and confusion at home. He also reported increasing fluid retention over several days. He further reports polyuria and polydipsia. He was evaluated in emergency room and was found to have glucose 589 MG/DL. Ammonia level was elevated 79. He was admitted to [facility] floor for ongoing care needs. He has not been diagnosed previously with diabetes. He has no known thyroid disease or hyperlipidemia. 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 He had been occasional binge drinker from approximately age 13 to his mid 20s. He denies esophageal varices being seen on any of the 3 EGDs done in the past 15 months. He has history of colon polyps on colonoscopy July 2018. He has history of pancreatitis in early 2018 without recurrence. Denies other disorders of his liver or gallbladder. Past Med Surg Social Fam HX - Past Medical History Medical history: cirrhosis, GERD, hypertension Additional medical history: alpha one intryptysin defiency Psychiatric history: depression - Past Surgical History Surgical History: orthopedic, other, other Additional surgical history: carpal tunnel left. nodules vocal cords. left knee - Social History Smoking Status: Never smoker Smokeless Tobacco Status: No Alcohol use: none Drug use: none Internal Medicine - H&P: Meds Rifaximin [Xifaxan] 550 mg PO BID 10/22/17 [History] Multivitamin [One Daily Multivitamin] 1 each PO DAILY 11/10/17 [History] Atorvastatin Calcium [Lipitor] 20 mg PO DAILY 12/03/18 [History] Bumetanide 2 mg PO BID 12/03/18 [History] Escitalopram [Lexapro] 10 mg PO DAILY 12/03/18 [History] Lactulose [Enulose] 60 gm PO TID 12/03/18 [History] Pantoprazole Sodium [Protonix] 40 mg PO TID 12/03/18 [History] Spironolactone [Aldactone] 150 mg PO BID 12/03/18 [History] Zinc Gluconate 100 mg PO BID 12/03/18 [History] Allergy/AdvReac Type Severity Reaction Status Date / Time No Known Allergies Allergy Verified 12/03/18 12:22 All Systems PM: A 10-system review of systems was performed and is negative for pertinent findings except as documented above in the HPI. Review of systems: Review of systems from his September 2017 [facility] hospitalization were reviewed and revised as below. Gen.: His weight has increased from 136.078 kg on 03/15/2018 to 148.6 kg on admission now. He reported at the September 2017 [facility] hospitalization his weight had increased approximately 50 pounds in the past year, unintentional Cardiovascular: He denies hypertension PR heart failure angina DVT or pulmonary embolus. Respiratory: He is a lifelong nonsmoker and has no documented chronic lung disease other than asthma in childhood GI: As per history of present illness : Denies hematuria dysuria or kidney stones Neurologic: He denies large distribution strokes or seizures Endocrine: As per history of present illness Hematology/oncology: He had anemia in childhood. 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 He had left carpal tunnel surgery. He denies gout or other bone joint or muscle disorders. - Constitutional Vitals: Temp Pulse Resp BP Pulse Ox 97.6 F 96 20 125/66 97 12/03/18 14:35 12/03/18 14:35 12/03/18 14:35 12/03/18 14:35 12/03/18 14:35 Exam: Gen.: He is a well-developed overweight male lying in bed who appears in no acute distress. HEENT: Head is atraumatic and normocephalic. Eyes: EOMI. There is no scleral icterus. Mouth: Mucosa is moist. Neck: Supple and nontender. There is no thyromegaly or adenopathy noted. Heart: Regular without murmurs gallops or ectopics Lungs: No wheezes or crackles are heard. Abdomen: He has a large abdomen. It is nontender to palpation except for very mild tenderness in the left mid abdominal area. No rebound or guarding is noted. Extremities: He has 1+ edema of the lower legs bilaterally. Dorsalis pedis and posttibial pulses are trace palpable bilaterally. His feet are warm to touch. Neurologic: Mental status: He is talkative and a good historian. Cranial nerves: Smile is symmetric. Forehead wrinkles bilaterally. Tongue protrudes midline. EOMI. Motor: There is no pronator drift. Cerebellar: Finger to nose is intact bilaterally. Skin: Warm and dry Internal Med - H&P Results - Labs CBC & Chem 7: 12/03/18 12:42 12/03/18 12:42 Labs: Short CBC 12/03/18 Range/Units 12:42 WBC 5.2 (4.3-11.1) K/mcL Hgb 10.4 L (12.9-16.9) g/dL Hct 30.7 L (37.5-50.1) % Plt Count 64 L (140-400) K/mcL Neutrophils # 3.5 (1.6-8.9) K/mcL BMP 12/03/18 12:42 Sodium 128 L Potassium 4.1 Chloride 93 L Carbon Dioxide 28 BUN 12 Creatinine 0.84 Glucose 589 H* Calcium 9.2 Liver Function 12/03/18 Range/Units 12:42 Total Bilirubin 2.5 H (0.3-1.0) mg/dL AST 62 H (13-39) Units/L ALT 55 H (7-52) Units/L Alkaline Phosphatase 236 H (34-104) Units/L Albumin 2.8 L (3.5-5.7) g/dL Urine 12/03/18 Range/Units 14:50 Urine Color Yellow (Yellow) Urine Clarity Clear (Clear) Urine pH 5.0 (5.0-8.0) pH Units Ur Specific [place] 1.020 (1.010-1.025) Urine Protein Negative (Neg-Trace) mg/dL Urine Glucose (UA) 500 H (Normal) mg/dL - Impressions ITS Impressions Abdomen/Pelvis CT 12/03/18 12:27 IMPRESSION: 1. No acute findings within the abdomen or pelvis to explain the patient's abdominal pain. No secondary signs of appendicitis. 2. Hepatic cirrhosis with findings consistent with portal hypertension. This includes splenomegaly, upper abdominal ascites as well as distal esophageal and gastric varices. D/ / 12/03/2018 13:41:35 Francois Mas MD / vesna Interpreting Provider: Francois Mas MD Head CT 12/03/18 12:29 IMPRESSION: No acute intracranial abnormality. D/ / Royal Parsons MD / Royal Parsons MD Interpreting Provider: Royal Parsons MD
[2018-12-03] MEDS: Bumetanide 1 MG/4 ML VIAL IVP SCH (18:44)
[2018-12-03] MEDS ORDERED: D5% in Water 1,000 ML IVC PRN (18:50)
[2018-12-03] MEDS ORDERED: Dextrose Gel 15 GM/37.5 ML TUBE PO PRN ×2 (18:50)
[2018-12-03] MEDS ORDERED: *HR* Dextrose 50 % in Water (Vial) 50 ML VIAL IVP PRN (18:50)
[2018-12-03] MEDS: *HR* SitaGLIPtin 25 MG TABLET PO SCH (19:05)
[2018-12-03] MEDS ORDERED: Bumetanide 1 MG TABLET PO SCH (21:00)
[2018-12-03] MEDS ORDERED: ZINC GLUCONATE 100 MG PO SCH (21:00)
[2018-12-03] MEDS ORDERED: Spironolactone 25 MG TABLET PO SCH (21:00)
[2018-12-03] MEDS: Spironolactone 25 MG TABLET PO SCH (21:09)
[2018-12-03] MEDS: Insulin LISPRO 300 UNITS/3 ML VIAL SQ SCH (21:09)
[2018-12-04] MEDS: Multivit/Ca/Min/Fe/FA 1 TAB TABLET PO SCH (07:51)
[2018-12-04] MEDS: Lactulose Oral Soln 20 GM/30 ML UDC PO SCH ×3 (07:51→21:49)
[2018-12-04] MEDS: *HR* Metformin 500 MG TABLET PO SCH ×2 (07:51→16:57)
[2018-12-04] MEDS: *HR* SitaGLIPtin 25 MG TABLET PO SCH (07:51)
[2018-12-04] MEDS: Bumetanide 1 MG/4 ML VIAL IVP SCH ×3 (07:52→17:55)
[2018-12-04] MEDS: Spironolactone 25 MG TABLET PO SCH ×2 (07:52→21:48)
[2018-12-04] MEDS: Insulin LISPRO 300 UNITS/3 ML VIAL SQ SCH ×4 (07:52→21:49)
[2018-12-04 09:39] LABS: Estimated Average Glucose 309 mg/dl; Hemoglobin A1C 12.4 %
--- NOTE | 2018-12-04 11:20 | Internal Med Progress Note ---
Date of Encounter: 12/04/18 Time of Encounter: 11:10 - Assessment and plan (1) Diabetes mellitus, new onset Current Visit: Yes Status: Acute Assessment and plan: December 04. Hemoglobin A1c significantly elevated at 12.4%. Continue Januvia and metformin and add Amaryl. Diabetic teaching will be done. Anticipate discharge home tomorrow. (2) Cirrhosis of liver Current Visit: No Status: Acute Assessment and plan: December 04. Continue Xifaxan and lactulose. Qualifiers: Hepatic cirrhosis type: unspecified hepatic cirrhosis Ascites presence: with ascites Qualified Code(s): K74.60 - Unspecified cirrhosis of liver; R18.8 - Other ascites (3) Hypertension Current Visit: No Status: Acute Assessment and plan: December 04. Continue Aldactone and Bumex. Qualifiers: Hypertension type: essential hypertension Qualified Code(s): I10 - Essential (primary) hypertension (4) Hyperammonemia Current Visit: No Status: Acute Assessment and plan: December 04. Continue Xifaxan and lactulose. (5) Anemia Current Visit: Yes Status: Acute Assessment and plan: December 04. Order anemia testing in a.m. Qualifiers: Anemia type: unspecified type Qualified Code(s): D64.9 - Anemia, unspecified - Subjective Interval history: December 04. He complains of a left anterolateral chest discomfort noticed on awakening. It has not changed since onset. There is no dyspnea or cough associated. He has no other complaints. - Constitutional Vitals: Temp Pulse Resp BP Pulse Ox 97.7 F 101 18 107/60 95 12/04/18 10:06 12/04/18 10:06 12/04/18 10:06 12/04/18 10:06 12/04/18 10:06 Exam: He is resting comfortably in bed and appears in no acute distress. His affect is bright and cheerful. There is no pain on chest wall compression. I reviewed his medications and lab results. Internal Medicine: Result - Labs CBC & Chem 7: 12/03/18 12:42 12/03/18 12:42 Labs: Short CBC 12/03/18 Range/Units 12:42 WBC 5.2 (4.3-11.1) K/mcL Hgb 10.4 L (12.9-16.9) g/dL Hct 30.7 L (37.5-50.1) % Plt Count 64 L (140-400) K/mcL Neutrophils # 3.5 (1.6-8.9) K/mcL BMP 12/03/18 12:42 Sodium 128 L Potassium 4.1 Chloride 93 L Carbon Dioxide 28 BUN 12 Creatinine 0.84 Glucose 589 H* Calcium 9.2 Liver Function 12/03/18 Range/Units 12:42 Total Bilirubin 2.5 H (0.3-1.0) mg/dL AST 62 H (13-39) Units/L ALT 55 H (7-52) Units/L Alkaline Phosphatase 236 H (34-104) Units/L Albumin 2.8 L (3.5-5.7) g/dL Urine 12/03/18 Range/Units 14:50 Urine Color Yellow (Yellow) Urine Clarity Clear (Clear) Urine pH 5.0 (5.0-8.0) pH Units Ur Specific [place] 1.020 (1.010-1.025) Urine Protein Negative (Neg-Trace) mg/dL Urine Glucose (UA) 500 H (Normal) mg/dL - Impressions Impressions Abdomen/Pelvis CT 12/03/18 12:27 IMPRESSION: 1. No acute findings within the abdomen or pelvis to explain the patient's abdominal pain. No secondary signs of appendicitis. 2. Hepatic cirrhosis with findings consistent with portal hypertension. This includes splenomegaly, upper abdominal ascites as well as distal esophageal and gastric varices. D/ / 12/03/2018 13:41:35 Francois Mas MD / vesna Interpreting Provider: Francois Mas MD Head CT 12/03/18 12:29 IMPRESSION: No acute intracranial abnormality. D/ / Royal Parsons MD / Royal Parsons MD Interpreting Provider: Royal Parsons MD Consult Discharge Plan - Plan Referrals: Lissette Mayberry, LIMNOLOGIST [Primary Care Provider] - 1 week
[2018-12-04] MEDS ORDERED: Ibuprofen 600 MG TABLET PO PRN ×2 (11:33→12:00)
[2018-12-04] MEDS: *HR* Glimepiride 2 MG TABLET PO SCH (12:06)
[2018-12-04] MEDS: Bumetanide 1 MG TABLET PO SCH (17:50)
[2018-12-05 05:49] LABS: Basophils # 0.1 K/mcL (0.0-0.2); Basophils % 1.3 %; Eosinophils # 0.2 K/mcL (0.0-0.6); Eosinophils % 4.6 %; Hematocrit 28.9 % (37.5-50.1); Hemoglobin 9.9 g/dL (12.9-16.9); Immature Granulocytes % 0.4 % (0-4); Lymphocytes # 1.1 K/mcL (0.6-4.6); Lymphocytes % 23.4 %; Mean Corpuscular HGB Conc 34.3 g/dL (31.6-35.5); Mean Corpuscular Hemoglobin 31.8 pg (28.0-33.3); Mean Corpuscular Volume 92.9 fL (83.0-100.0); Mean Platelet Volume 10.8 fL (9.4-12.4); Monocytes # 0.5 K/mcL (0.0-1.3); Monocytes % 10.5 %; Neutrophils # 2.7 K/mcL (1.6-8.9); Red Blood Count 3.11 M/mcL (4.19-5.50); Red Cell Distribution Width 13.5 % (11.5-14.5); Segmented Neutrophils % 59.8 %
[2018-12-05 05:56] LABS: Platelet Count 66 K/mcL (140-400)
[2018-12-05 07:33] VITALS: BP 110/70
[2018-12-05] MEDS: Lactulose Oral Soln 20 GM/30 ML UDC PO SCH (08:03)
[2018-12-05] MEDS: Spironolactone 25 MG TABLET PO SCH (08:09)
[2018-12-05] MEDS: Bumetanide 1 MG TABLET PO SCH (08:10)
[2018-12-05] MEDS: *HR* SitaGLIPtin 25 MG TABLET PO SCH (08:10)
[2018-12-05] MEDS: *HR* Metformin 500 MG TABLET PO SCH (08:11)
[2018-12-05] MEDS: *HR* Glimepiride 2 MG TABLET PO SCH (08:12)
[2018-12-05] MEDS: Multivit/Ca/Min/Fe/FA 1 TAB TABLET PO SCH (08:12)
[2018-12-05] MEDS: Insulin LISPRO 300 UNITS/3 ML VIAL SQ SCH ×2 (08:13→11:42)
[2018-12-05 09:38] LABS: % Iron Saturation 9 % (20-55); Iron 31 mcg/dL (65-175); Transferrin 255 mg/dL (203-362)
[2018-12-05 09:53] LABS: Ferritin 15 ng/mL (20-250)
[2018-12-05 10:02] LABS: Vitamin B12 > 1500 pg/mL (250-1100)
--- NOTE | 2018-12-05 12:19 | Discharge Summary ---
Orders not resulted at time of discharge: Pending orders 12/04/18 05:10 Zinc AM 0400 Date of Encounter: 12/05/18 Time of Encounter: 12:05 - Discharge Diagnosis (1) Diabetes mellitus, new onset Priority: Primary Status: Acute (2) Cirrhosis of liver Priority: Secondary Status: Chronic Qualifiers: Hepatic cirrhosis type: unspecified hepatic cirrhosis Ascites presence: with ascites Qualified Code(s): K74.60 - Unspecified cirrhosis of liver; R18.8 - Other ascites (3) Hypertension Priority: Secondary Status: Chronic Qualifiers: Hypertension type: essential hypertension Qualified Code(s): I10 - Essential (primary) hypertension (4) Hyperammonemia Priority: Secondary Status: Acute (5) Anemia Priority: Secondary Status: Acute Qualifiers: Anemia type: iron deficiency Iron deficiency anemia type: unspecified iron deficiency Qualified Code(s): D50.9 - Iron deficiency anemia, unspecified Hospital course: Mr. Henriquez is a 48 year old male who came to emergency room for evaluation stating he had lethargy and confusion at home. He also reported increasing fluid retention over several days. He further reports polyuria and polydipsia. He was evaluated in emergency room and was found to have glucose 589 MG/DL. Ammonia level was elevated 79. He was admitted to [facility] floor for ongoing care needs. Initial orders were written by the emergency room physician. I saw him on December 03 and performed a history and physical. He was started on metformin and Januvia initially. Amaryl was later added. Accu-Cheks with SSI were ordered and diabetic diet instruction was given. Blood sugars returned to a safe level prior to discharge. Hemoglobin A1c returned significantly elevated at 12.2%. His PCP can monitor and further adjust medication doses to improve control. Anemia testing showed iron 31, transferrin saturation 9%, transferrin 255, ferritin 15, B12 > 1500, and folate 17. He was started on ferrous sulfate with ascorbic acid. He will be discharged home and follow with his PCP Lissette Mayberry CNP within 1 week. - Time Spent with Patient Total time spent providing and/or coordinating discharge services: - Discharge Medications Prescriptions: New Ascorbic Acid [C-500] 500 mg PO DAILY #30 tablet Ferrous Sulfate 325 mg PO DAILY #30 tablet Glimepiride [Amaryl] 2 mg PO 0800 #30 tablet metFORMIN [Glucophage] 500 mg PO BIDWM #60 tablet SitaGLIPtin [Januvia] 100 mg PO DAILY #30 tablet Continue Rifaximin [Xifaxan] 550 mg PO BID Multivitamin [One Daily Multivitamin] 1 each PO DAILY Pantoprazole Sodium [Protonix] 40 mg PO TID Lactulose [Enulose] 60 gm PO TID Escitalopram [Lexapro] 10 mg PO DAILY Zinc Gluconate 100 mg PO BID Bumetanide 2 mg PO BID Atorvastatin Calcium [Lipitor] 20 mg PO DAILY Spironolactone [Aldactone] 150 mg PO BID Home Medications: Rifaximin [Xifaxan] 550 mg PO BID 10/22/17 [History] Multivitamin [One Daily Multivitamin] 1 each PO DAILY 11/10/17 [History] Atorvastatin Calcium [Lipitor] 20 mg PO DAILY 12/03/18 [History] Bumetanide 2 mg PO BID 12/03/18 [History] Escitalopram [Lexapro] 10 mg PO DAILY 12/03/18 [History] Lactulose [Enulose] 60 gm PO TID 12/03/18 [History] Pantoprazole Sodium [Protonix] 40 mg PO TID 12/03/18 [History] Spironolactone [Aldactone] 150 mg PO BID 12/03/18 [History] Zinc Gluconate 100 mg PO BID 12/03/18 [History] Ascorbic Acid [C-500] 500 mg PO DAILY #30 tablet 12/05/18 [Rx] Ferrous Sulfate 325 mg PO DAILY #30 tablet 12/05/18 [Rx] Glimepiride [Amaryl] 2 mg PO 0800 #30 tablet 12/05/18 [Rx] SitaGLIPtin [Januvia] 100 mg PO DAILY #30 tablet 12/05/18 [Rx] metFORMIN [Glucophage] 500 mg PO BIDWM #60 tablet 12/05/18 [Rx] Allergies/Adverse Reactions: Allergy/AdvReac Type Severity Reaction Status Date / Time No Known Allergies Allergy Verified 12/03/18 12:22 Date of admission: 12/03/18 13:53 Primary care physician: Lissette Mayberry CNP Consults: 12/04/18 11:22 Consult to Diabetes Education [CONS] Routine Comment: Reason for Consult: Newly diagnosed DM 2 - Constitutional Vitals: Temp Pulse Resp BP Pulse Ox 98.5 F 92 16 110/70 93 12/05/18 07:27 12/05/18 07:27 12/05/18 07:27 12/05/18 07:27 12/05/18 07:27 - Patient Status Disposition: Home, Self-Care Condition: Fair - Discharge Instructions Follow Up With: Lissette Mayberry CNP [Primary Care Provider] - 1 week - Diet and Activity Activity: resume usual activities as tolerated Diet: diabetic diet
== END 2018-12-05 13:30 | disposition home or self-care (01) ==
LOC: INPPIK 12:20 → EMEROOPIK 12:20 → INPPIK 14:19
PROVIDERS: ADMIT Internal Medicine; ATTEND Internal Medicine

== ENCOUNTER 2018-12-21 12:01 | Observation (INO) ==
[2018-12-21] MEDS ORDERED: Lactulose Oral Soln 20 GM/30 ML UDC PO ONE (12:21)
--- NOTE | 2018-12-21 12:28 | Emergency Department Note ---
Disposition Clinical Impression: Hepatic encephalopathy Disposition: Admitted As Inpatient Condition: Fair Referrals: NONE,PCP [Non-Partnered Physician] - Forms: ED Satisfaction Letter, Work/School Release Time of Disposition: 15:09 Altered Mental Status HPI - General Chief Complaint: ED General Medical Stated Complaint: confusion, hx of cirrhosis Time Seen by Provider: 12/21/18 12:16 Source: patient, family Mode of arrival: private vehicle Limitations: altered mental status Nursing Notes Reviewed: Yes Vital Signs Reviewed: Yes - History of Present Illness MD complaint: confusion, other (Sleeping a lot) Onset (ago): day(s) (Yesterday and today) Timing confirmed by: spouse Pain Severity: none Consistency of Symptoms: getting worse, constant Context: liver disease Associated symptoms: Reports: other (Sleeping a lot) - Related Data Home Medications Medication Instructions Recorded Confirmed Rifaximin [Xifaxan] 550 mg PO BID 10/22/17 12/21/18 Multivitamin [One Daily 1 each PO DAILY 11/10/17 12/21/18 Multivitamin] Atorvastatin Calcium [Lipitor] 20 mg PO DAILY 12/03/18 12/21/18 Bumetanide 2 mg PO BID 12/03/18 12/21/18 Escitalopram [Lexapro] 10 mg PO DAILY 12/03/18 12/21/18 Lactulose [Enulose] 60 gm PO TID 12/03/18 12/21/18 Pantoprazole Sodium [Protonix] 40 mg PO TID 12/03/18 12/21/18 Spironolactone [Aldactone] 150 mg PO BID 12/03/18 12/21/18 Zinc Gluconate 100 mg PO BID 12/03/18 12/21/18 Previous Rx's Medication Instructions Recorded Ascorbic Acid [C-500] 500 mg PO DAILY #30 tablet 12/05/18 Ferrous Sulfate 325 mg PO DAILY #30 tablet 12/05/18 Glimepiride [Amaryl] 2 mg PO 0800 #30 tablet 12/05/18 SitaGLIPtin [Januvia] 100 mg PO DAILY #30 tablet 12/05/18 metFORMIN [Glucophage] 500 mg PO BIDWM #60 tablet 12/05/18 Allergies Allergy/AdvReac Type Severity Reaction Status Date / Time No Known Allergies Allergy Verified 12/21/18 12:03 All systems ED: reviewed and negative except as stated. Constitutional: Denies: fever, chills ENT ED: Denies: ear pain Cardiovascular: Denies: chest pain Respiratory: Denies: cough, dyspnea Gastrointestinal: Denies: vomiting, diarrhea Neurological: Denies: headache Past Medical History - Past Medical History Attestation: Yes The following information was validated with the patient. Source: patient, old records reviewed, obtained from family, nursing notes reviewed Medical history: Reports: cirrhosis, diabetes, GERD, hypertension, renal disease Surgical history: Reports: orthopedic, other, other Psychiatric history: Reports: depression - Social History Smoking Status: Never smoker Smokeless Tobacco Status: No Alcohol use: Reports: none Drug use: Reports: none Physical Exam - General Limitations: altered mental status General appearance: alert, other (Sluggish and gives the same answers to a lot of questions) - Head Head exam: atraumatic, normocephalic, normal inspection - Eye Eye exam: Present: normal appearance, PERRL, EOMI. Absent: scleral icterus, mydriasis - ENT ENT exam: normal exam, normal oropharynx, mucous membranes moist, normal external ear exam - Neck Neck exam: Present: normal inspection, full ROM, trachea midline. Absent: meningismus - Chest Chest inspection: Present: normal inspection, symmetric chest wall rise. Abse nt: tenderness - Respiratory Respiratory exam: Present: normal lung sounds bilaterally. Absent: respiratory distress, wheezes - Cardiovascular Cardiovascular exam: Present: regular rate, normal rhythm, irregular rhythm - Abdominal Exam Abdominal exam: Present: soft, Non-Tender, normal bowel sounds - Extremities Exam Extremities exam: Present: normal inspection. Absent: pedal edema - Neurological Exam Neurological exam: Present: alert, normal gait. Absent: motor sensory deficit - Psychiatric Psychiatric exam: Present: normal affect - Skin Skin exam: Present: warm, dry. Absent: rash Course Course Narrative: Patient presents with confusion and lethargy and sleeping a lot at home. I talked with family members and they do not report any other obvious indications of illness like cough or fever or vomiting. Patient denies any of these things however when I ask him things like heavy menstrual can any way or do have a headache he responds "yes, confusion". This certainly could be hepatic encephalopathy. He was recently in the hospital and had elevated sugars due to diabetes so that may be playing a factor as well. I am going to do an altered mental status workup on the patient and also check his ammonia level and CT his head. Disposition will be based on diagnostic results and reevaluation. - Reevaluation(s) Reevaluation #1: Patient's lab work came back showing ammonia level at 89. Did not find anything else in the workup. CT of head was fine and chest x-ray was fine and the rest of the labs were not off baseline. Patient was already given lactulose here. I discussed the case with the hospitalist, Dr. Gomez who accepted the patient for admission. Time: 15:07 - Consultations Consultation #1: Dr. Gomez, hospitalist - I discussed the case with the hospitalist. He accepted the patient for admission. Time: 15:09 Vital Signs Temperature 97.7 F 12/21/18 12:03 Pulse Rate 87 12/21/18 12:03 Respiratory Rate 18 12/21/18 12:03 Blood Pressure 113/75 12/21/18 12:03 O2 Sat by Pulse Oximetry 96 12/21/18 12:03 Temperature 97.7 F 12/21/18 12:03 Pulse Rate 83 12/21/18 14:34 Respiratory Rate 14 12/21/18 14:34 Blood Pressure 107/56 12/21/18 14:34 O2 Sat by Pulse Oximetry 95 12/21/18 14:34 Oxygen Delivery Oxygen Delivery Room Air Altered Mental Status - Medical Records Medical records reviewed: Yes I reviewed the patient's medical records. - Lab Data Lab results reviewed: Yes I reviewed the patient's lab results. Result diagrams: 12/21/18 12:45 12/21/18 12:45 Lab Results 12/21/18 12/21/18 12/21/18 Range/Units 12:45 12:45 12:45 WBC 5.5 (4.3-11.1) K/mcL RBC 3.69 L (4.19-5.50) M/mcL Hgb 11.8 L (12.9-16.9) g/dL Hct 35.2 L (37.5-50.1) % MCV 95.4 (83.0-100.0) fL MCH 32.0 (28.0-33.3) pg MCHC 33.5 (31.6-35.5) g/dL RDW 16.7 H (11.5-14.5) % Plt Count 86 L (140-400) K/mcL MPV 9.1 L (9.4-12.4) fL Immature Gran % 0.4 (0-4) % Seg Neutrophils % 57.4 % Lymphocytes % 20.4 % Monocytes % 14.1 % Eosinophils % 6.4 % Basophils % 1.3 % Neutrophils # 3.2 (1.6-8.9) K/mcL Lymphocytes # 1.1 (0.6-4.6) K/mcL Monocytes # 0.8 (0.0-1.3) K/mcL Eosinophils # 0.4 (0.0-0.6) K/mcL Basophils # 0.1 (0.0-0.2) K/mcL PT 15.8 H (9.4-12.1) Seconds INR 1.4 APTT 35.0 (26.0-36.0) Seconds Sodium 135 L (136-145) mEq/L Potassium 3.8 (3.5-5.1) mEq/L Chloride 98 (98-107) mEq/L Carbon Dioxide 32 H (23-29) mEq/L BUN 11 (6-20) mg/dL Creatinine 0.82 (0.70-1.30) mg/dL Est GFR ( Amer) > 60 (> 60) Est GFR (Non-Af Amer) > 60 (> 60) BUN/Creatinine Ratio 13 (6-26) Glucose 113 H (70-105) mg/dL Calculated Osmolality 280 (280-300) Lactic Acid (0.5-2.2) mmol/L Calcium 9.0 (8.6-10.3) mg/dL Total Bilirubin 2.5 H (0.3-1.0) mg/dL Direct Bilirubin 0.6 H (0.0-0.2) mg/dL Indirect Bilirubin 1.9 H (0.0-1.2) mg/dL AST 90 H (13-39) Units/L ALT 77 H (7-52) Units/L Alkaline Phosphatase 129 H (34-104) Units/L Ammonia (16-53) mcmol/L Troponin I < 0.03 (< 0.04) ng/mL B-Natriuretic Peptide (Less than 100) pg/mL Serum Total Protein 6.7 (6.4-8.9) g/dL Albumin 3.0 L (3.5-5.7) g/dL Globulin 3.7 H (2.4-3.5) g/dL Albumin/Globulin Ratio 0.8 L (1.1-2.2) Urine Color (Yellow) Urine Clarity (Clear) Urine pH (5.0-8.0) pH Units Ur Specific [place] (1.010-1.025) Urine Protein (Neg-Trace) mg/dL Urine Glucose (UA) (Normal) mg/dL Urine Ketones (Negative) mg/dL Urine Blood (Negative) Urine Nitrite (Negative) Urine Bilirubin (Negative) Urine Urobilinogen (Normal) mg/dL Ur Leukocyte Esterase (Negative) Urine Microscopic RBC (0-3) per hpf Urine Microscopic WBC (0-3) per hpf Ur Squamous Epith Cells (None-Few) per lpf Urine Bacteria (None-Few) per hpf Hyaline Casts (None-Few) per lpf Ur Culture Indicated? (NO) Urine Opiates Screen (Lmdbjl=194) ng/mL Ur Oxycodone Screen (Cutoff= 100) ng/mL Ur Barbiturates Screen (Jwaaka=956) ng/mL Ur Phencyclidine Scrn (Cutoff=25) ng/mL Ur Amphetamines Screen (Tlgxoa=7910) ng/mL U Benzodiazepines Scrn (Eloqhl=453) ng/mL Urine Cocaine Screen (Cutoff= 300) ng/mL U Marijuana (THC) Screen (Cutoff = 50) ng/mL Ur Drug Screen Interp Ethyl Alcohol < 10 (Less than 10) mg/dL 12/21/18 12/21/18 12/21/18 Range/Units 12:45 12:45 12:45 WBC (4.3-11.1) K/mcL RBC (4.19-5.50) M/mcL Hgb (12.9-16.9) g/dL Hct (37.5-50.1) % MCV (83.0-100.0) fL MCH (28.0-33.3) pg MCHC (31.6-35.5) g/dL RDW (11.5-14.5) % Plt Count (140-400) K/mcL MPV (9.4-12.4) fL Immature Gran % (0-4) % Seg Neutrophils % % Lymphocytes % % Monocytes % % Eosinophils % % Basophils % % Neutrophils # (1.6-8.9) K/mcL Lymphocytes # (0.6-4.6) K/mcL Monocytes # (0.0-1.3) K/mcL Eosinophils # (0.0-0.6) K/mcL Basophils # (0.0-0.2) K/mcL PT (9.4-12.1) Seconds INR APTT (26.0-36.0) Seconds Sodium (136-145) mEq/L Potassium (3.5-5.1) mEq/L Chloride (98-107) mEq/L Carbon Dioxide (23-29) mEq/L BUN (6-20) mg/dL Creatinine (0.70-1.30) mg/dL Est GFR ( Amer) (> 60) Est GFR (Non-Af Amer) (> 60) BUN/Creatinine Ratio (6-26) Glucose (70-105) mg/dL Calculated Osmolality (280-300) Lactic Acid 1.6 (0.5-2.2) mmol/L Calcium (8.6-10.3) mg/dL Total Bilirubin (0.3-1.0) mg/dL Direct Bilirubin (0.0-0.2) mg/dL Indirect Bilirubin (0.0-1.2) mg/dL AST (13-39) Units/L ALT (7-52) Units/L Alkaline Phosphatase (34-104) Units/L Ammonia 89 H (16-53) mcmol/L Troponin I (< 0.04) ng/mL B-Natriuretic Peptide 64 (Less than 100) pg/mL Serum Total Protein (6.4-8.9) g/dL Albumin (3.5-5.7) g/dL Globulin (2.4-3.5) g/dL Albumin/Globulin Ratio (1.1-2.2) Urine Color (Yellow) Urine Clarity (Clear) Urine pH (5.0-8.0) pH Units Ur Specific [place] (1.010-1.025) Urine Protein (Neg-Trace) mg/dL Urine Glucose (UA) (Normal) mg/dL Urine Ketones (Negative) mg/dL Urine Blood (Negative) Urine Nitrite (Negative) Urine Bilirubin (Negative) Urine Urobilinogen (Normal) mg/dL Ur Leukocyte Esterase (Negative) Urine Microscopic RBC (0-3) per hpf Urine Microscopic WBC (0-3) per hpf Ur Squamous Epith Cells (None-Few) per lpf Urine Bacteria (None-Few) per hpf Hyaline Casts (None-Few) per lpf Ur Culture Indicated? (NO) Urine Opiates Screen (Tgobjc=078) ng/mL Ur Oxycodone Screen (Cutoff= 100) ng/mL Ur Barbiturates Screen (Jnjrdk=891) ng/mL Ur Phencyclidine Scrn (Cutoff=25) ng/mL Ur Amphetamines Screen (Mrtgoc=3166) ng/mL U Benzodiazepines Scrn (Wfspnb=826) ng/mL Urine Cocaine Screen (Cutoff= 300) ng/mL U Marijuana (THC) Screen (Cutoff = 50) ng/mL Ur Drug Screen Interp Ethyl Alcohol (Less than 10) mg/dL 12/21/18 12/21/18 Range/Units 13:26 13:26 WBC (4.3-11.1) K/mcL RBC (4.19-5.50) M/mcL Hgb (12.9-16.9) g/dL Hct (37.5-50.1) % MCV (83.0-100.0) fL MCH (28.0-33.3) pg MCHC (31.6-35.5) g/dL RDW (11.5-14.5) % Plt Count (140-400) K/mcL MPV (9.4-12.4) fL Immature Gran % (0-4) % Seg Neutrophils % % Lymphocytes % % Monocytes % % Eosinophils % % Basophils % % Neutrophils # (1.6-8.9) K/mcL Lymphocytes # (0.6-4.6) K/mcL Monocytes # (0.0-1.3) K/mcL Eosinophils # (0.0-0.6) K/mcL Basophils # (0.0-0.2) K/mcL PT (9.4-12.1) Seconds INR APTT (26.0-36.0) Seconds Sodium (136-145) mEq/L Potassium (3.5-5.1) mEq/L Chloride (98-107) mEq/L Carbon Dioxide (23-29) mEq/L BUN (6-20) mg/dL Creatinine (0.70-1.30) mg/dL Est GFR ( Amer) (> 60) Est GFR (Non-Af Amer) (> 60) BUN/Creatinine Ratio (6-26) Glucose (70-105) mg/dL Calculated Osmolality (280-300) Lactic Acid (0.5-2.2) mmol/L Calcium (8.6-10.3) mg/dL Total Bilirubin (0.3-1.0) mg/dL Direct Bilirubin (0.0-0.2) mg/dL Indirect Bilirubin (0.0-1.2) mg/dL AST (13-39) Units/L ALT (7-52) Units/L Alkaline Phosphatase (34-104) Units/L Ammonia (16-53) mcmol/L Troponin I (< 0.04) ng/mL B-Natriuretic Peptide (Less than 100) pg/mL Serum Total Protein (6.4-8.9) g/dL Albumin (3.5-5.7) g/dL Globulin (2.4-3.5) g/dL Albumin/Globulin Ratio (1.1-2.2) Urine Color Dark Yellow (Yellow) Urine Clarity Clear (Clear) Urine pH 7.0 (5.0-8.0) pH Units Ur Specific [place] 1.015 (1.010-1.025) Urine Protein 30 H (Neg-Trace) mg/dL Urine Glucose (UA) Normal (Normal) mg/dL Urine Ketones Negative (Negative) mg/dL Urine Blood Trace-intact H (Negative) Urine Nitrite Negative (Negative) Urine Bilirubin Small H (Negative) Urine Urobilinogen 2.0 H (Normal) mg/dL Ur Leukocyte Esterase Negative (Negative) Urine Microscopic RBC 3-5 H (0-3) per hpf Urine Microscopic WBC 5-15 H (0-3) per hpf Ur Squamous Epith Cells Few (None-Few) per lpf Urine Bacteria Few (None-Few) per hpf Hyaline Casts Few (None-Few) per lpf Ur Culture Indicated? NO (NO) Urine Opiates Screen Negative (Ixdvpt=248) ng/mL Ur Oxycodone Screen Negative (Cutoff= 100) ng/mL Ur Barbiturates Screen Negative (Xjcemj=215) ng/mL Ur Phencyclidine Scrn Negative (Cutoff=25) ng/mL Ur Amphetamines Screen Negative (Swswni=1242) ng/mL U Benzodiazepines Scrn Negative (Hfiozw=068) ng/mL Urine Cocaine Screen Negative (Cutoff= 300) ng/mL U Marijuana (THC) Screen Negative (Cutoff = 50) ng/mL Ur Drug Screen Interp See Below Ethyl Alcohol (Less than 10) mg/dL - Radiology Data Radiology results reviewed: Yes I reviewed the patient's radiology results. - EKG Data EKG attestation: Yes I reviewed and interpreted this EKG. EKG results narrative: Twelve-lead EKG performed at 12:27 PM. Ordered, reviewed and interpreted by ED physician shows sinus rhythm at a rate of 84. Normal axis. Good hour progression across to precordium. No acute ischemic changes. Intervals are within normal limits. TPA Checklist - LKW: 3-4.5 hrs Add. Warnings/Precautions Patient/family understanding: The patient/family members have been counseled and understood the risk, benefit, and alternatives of treatment.
[2018-12-21 12:55] LABS: Basophils # 0.1 K/mcL (0.0-0.2); Basophils % 1.3 %; Eosinophils # 0.4 K/mcL (0.0-0.6); Eosinophils % 6.4 %; Hematocrit 35.2 % (37.5-50.1); Hemoglobin 11.8 g/dL (12.9-16.9); Immature Granulocytes % 0.4 % (0-4); Lymphocytes # 1.1 K/mcL (0.6-4.6); Lymphocytes % 20.4 %; Mean Corpuscular HGB Conc 33.5 g/dL (31.6-35.5); Mean Corpuscular Volume 95.4 fL (83.0-100.0); Mean Platelet Volume 9.1 fL (9.4-12.4); Monocytes # 0.8 K/mcL (0.0-1.3); Monocytes % 14.1 %; Neutrophils # 3.2 K/mcL (1.6-8.9); Platelet Count 86 K/mcL (140-400); Red Blood Count 3.69 M/mcL (4.19-5.50); Red Cell Distribution Width 16.7 % (11.5-14.5); Segmented Neutrophils % 57.4 %
[2018-12-21 13:01] LABS: INR 1.4; Prothrombin Time 15.8 Seconds (9.4-12.1)
[2018-12-21 13:10] LABS: Alanine Aminotransferase 77 Units/L (7-52); Albumin/Globulin Ratio 0.8 (1.1-2.2); Alkaline Phosphatase 129 Units/L (34-104); Aspartate Amino Transferase 90 Units/L (13-39); BUN/Creatinine Ratio 13 (6-26); Bilirubin,Direct 0.6 mg/dL (0.0-0.2); Bilirubin,Indirect 1.9 mg/dL (0.0-1.2); Bilirubin,Total 2.5 mg/dL (0.3-1.0); Blood Urea Nitrogen 11 mg/dL (6-20); Carbon Dioxide 32 mEq/L (23-29); Chloride 98 mEq/L (98-107); Ethanol < 10 mg/dL (Less than 10); Globulin 3.7 g/dL (2.4-3.5); Glucose 113 mg/dL (70-105); Osmolality,Calculated 280 (280-300); Potassium 3.8 mEq/L (3.5-5.1); Sodium 135 mEq/L (136-145); Total Protein 6.7 g/dL (6.4-8.9); eGFR For Non-African Americans > 60 (> 60)
[2018-12-21 13:12] LABS: Troponin I < 0.03 ng/mL (< 0.04)
[2018-12-21 13:32] LABS: Bilirubin,Urine Small (Negative); Blood,Urine Trace-intact (Negative); Clarity,Urine Clear (Clear); Color,Urine Dark Yellow (Yellow); Glucose,Urine (UA) Normal (Normal); Ketones,Urine Negative (Negative); Leukocyte Esterase,Urine Negative (Negative); Nitrite,Urine Negative (Negative); Protein,Urine 30 mg/dL (Neg-Trace); Specific Gravity,Urine 1.015 (1.010-1.025)
[2018-12-21 13:39] LABS: Bacteria,Urine Few per hpf (None-Few); Hyaline Casts,Urine Few per lpf (None-Few); Squamous Epithelial Cell,Urine Few per lpf (None-Few)
[2018-12-21 13:48] LABS: Amphetamine Screen,Urine Negative ng/mL (Cutoff=1000); Barbiturate Screen,Urine Negative ng/mL (Cutoff=200); Benzodiazepines Screen,Urine Negative ng/mL (Cutoff=200); Cannabinoid Screen,Urine Negative ng/mL (Cutoff = 50); Cocaine Screen,Urine Negative ng/mL (Cutoff= 300); Opiate Screen,Urine Negative ng/mL (Cutoff=300); Phencyclidine Screen,Urine Negative ng/mL (Cutoff=25)
--- NOTE | 2018-12-21 14:22 | Electrocardiograph Report ---
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
[2018-12-21] MEDS ORDERED: 0.9 % Sodium Chloride 1,000 ML IVC SCH (16:43)
[2018-12-21] MEDS ORDERED: Naloxone 0.4 MG/ML INJ IVP PRN (16:43)
[2018-12-21] MEDS: *HR* Metformin 500 MG TABLET PO SCH (17:38)
[2018-12-21] MEDS: Spironolactone 25 MG TABLET PO SCH (20:36)
[2018-12-21] MEDS: Lactulose Oral Soln 20 GM/30 ML UDC PO SCH (20:37)
[2018-12-21] MEDS: Bumetanide 1 MG TABLET PO SCH (20:37)
[2018-12-21] MEDS ORDERED: ZINC GLUCONATE 100 MG PO SCH (21:00)
[2018-12-22 05:37] LABS: Basophils # 0.1 K/mcL (0.0-0.2); Basophils % 1.3 %; Eosinophils # 0.4 K/mcL (0.0-0.6); Eosinophils % 6.6 %; Hematocrit 32.7 % (37.5-50.1); Hemoglobin 10.9 g/dL (12.9-16.9); Immature Granulocytes % 0.5 % (0-4); Lymphocytes # 1.2 K/mcL (0.6-4.6); Lymphocytes % 19.8 %; Mean Corpuscular HGB Conc 33.3 g/dL (31.6-35.5); Mean Corpuscular Volume 95.9 fL (83.0-100.0); Mean Platelet Volume 9.7 fL (9.4-12.4); Monocytes # 0.8 K/mcL (0.0-1.3); Monocytes % 13.8 %; Neutrophils # 3.5 K/mcL (1.6-8.9); Red Blood Count 3.41 M/mcL (4.19-5.50); Red Cell Distribution Width 16.8 % (11.5-14.5)
[2018-12-22 06:00] LABS: Alanine Aminotransferase 72 Units/L (7-52); Albumin 2.8 g/dL (3.5-5.7); Albumin/Globulin Ratio 0.8 (1.1-2.2); Alkaline Phosphatase 116 Units/L (34-104); Aspartate Amino Transferase 87 Units/L (13-39); BUN/Creatinine Ratio 17 (6-26); Bilirubin,Total 2.1 mg/dL (0.3-1.0); Blood Urea Nitrogen 14 mg/dL (6-20); Calcium 8.8 mg/dL (8.6-10.3); Carbon Dioxide 29 mEq/L (23-29); Chloride 101 mEq/L (98-107); Globulin 3.4 g/dL (2.4-3.5); Glucose 160 mg/dL (70-105); Osmolality,Calculated 288 (280-300); Potassium 3.5 mEq/L (3.5-5.1); Sodium 137 mEq/L (136-145); Total Protein 6.2 g/dL (6.4-8.9); eGFR For Non-African Americans > 60 (> 60)
[2018-12-22] MEDS ORDERED: Ascorbic Acid 500 MG TABLET PO SCH (06:30)
[2018-12-22] MEDS ORDERED: *HR* Glimepiride 2 MG TABLET PO SCH (08:00)
[2018-12-22 08:54] LABS: Platelet Count 88 K/mcL (140-400)
[2018-12-22] MEDS: *HR* Metformin 500 MG TABLET PO SCH (08:58)
[2018-12-22] MEDS: Spironolactone 25 MG TABLET PO SCH (08:58)
[2018-12-22] MEDS: Lactulose Oral Soln 20 GM/30 ML UDC PO SCH (08:58)
[2018-12-22] MEDS: Bumetanide 1 MG TABLET PO SCH (08:59)
[2018-12-22] MEDS ORDERED: Multivit/Ca/Min/Fe/FA 1 TAB TABLET PO SCH (09:00)
[2018-12-22] MEDS ORDERED: *HR* SitaGLIPtin 25 MG TABLET PO SCH (09:00)
[2018-12-22 10:55] VITALS: BP 110/61
--- NOTE | 2018-12-22 11:22 | Internal Med History&Physical ---
Date of Encounter: 12/22/18 Time of Encounter: 10:55 Assessment and Plan (1) Hepatic encephalopathy Current visit: Yes Status: Acute Suspect primary contributor to confusion and hallucinations. He denies missing doses of rifaximin and lactulose. His mental status appears to have returned to baseline. I told him he should discuss with his PCP possible referral to gastroenterology for specificly addressing this if his symptoms recur. (2) Cirrhosis of liver Current visit: No Status: Chronic As above Qualifiers: Hepatic cirrhosis type: unspecified hepatic cirrhosis Ascites presence: with ascites Qualified Code(s): K74.60 - Unspecified cirrhosis of liver; R18.8 - Other ascites (3) Anemia Current visit: No Status: Acute Anemia testing during his November 2018 hospitalization showed iron 31, transferrin saturation 9%, transferrin 255, ferritin 15, B12 > 1500, and folate 17. He was started on ferrous sulfate with ascorbic acid. Qualifiers: Anemia type: iron deficiency Iron deficiency anemia type: unspecified iron deficiency Qualified Code(s): D50.9 - Iron deficiency anemia, unspecified (4) DM type 2 (diabetes mellitus, type 2) Current visit: Yes Status: Chronic Continue metformin and Amaryl. His PCP can adjust doses and monitor blood sugar/hemoglobin A1c. Qualifiers: Diabetes mellitus terminal operator insulin use: without senior care use Diabetes mellitus complication status: without complication Qualified Code(s): E11.9 - Type 2 diabetes mellitus without complications Internal Medicine - H&P: HPI Chief complaint: Weakness, confusion Admitted From: Emergency Dept Plans for Post Hospital Care: Home History of present illness: Mr. Henriquez is a 48 year old male who came to emergency room stating he has felt weak since discharge from [facility] approximately 3 weeks ago. He has felt "dizzy" but has not fallen. On the day of admission he appeared to be having halluc inations according to his . He was brought to emergency room and evaluated and was felt to have hepatic encephalopathy. [facility] was [facility] floor for ongoing care needs. He was hospitalized at [facility] approximately 3 weeks ago with hyperglycemia and was found to have DM 2. Hemoglobin A1c was elevated at 12.2%. He was started on metformin, Amaryl, and Januvia. Diabetic teaching was done. He reports he has not taken the Januvia but has used the other medications and blood sugars are generally well controlled. He has had weight loss of approximately 10 pounds since discharge. He has documented cirrhosis felt to be secondary to alpha-1 antitrypsin deficiency (A1AT ZZ homozygous on 10/21/2017). He has had 3 EGDs in the past 15 months and colonoscopy July 2018 showed colon polyps which were resected. He follows regularly with a diesel tractor engine mechanic at [facility]. Denies missing any doses of lactulose or rifaximin. He does not use alcohol or OTC medications. He has history of pancreatitis early 2017 without recurrence. He denies other disorders of his liver gallbladder or exocrine pancreas. Past Med Surg Social Fam HX - Past Medical History Medical history: cirrhosis, diabetes, GERD, hypertension, renal disease Additional medical history: alpha one intryptysin defiency Psychiatric history: depression - Past Surgical History Surgical History: orthopedic, other, other Additional surgical history: carpal tunnel left. nodules vocal cords. left knee - Social History Smoking Status: Never smoker Smokeless Tobacco Status: No Alcohol use: none Drug use: none Internal Medicine - H&P: Meds Rifaximin [Xifaxan] 550 mg PO BID 10/22/17 [History] Multivitamin [One Daily Multivitamin] 1 each PO DAILY 11/10/17 [History] Atorvastatin Calcium [Lipitor] 20 mg PO DAILY 12/03/18 [History] Bumetanide 2 mg PO BID 12/03/18 [History] Escitalopram [Lexapro] 10 mg PO DAILY 12/03/18 [History] Lactulose [Enulose] 60 gm PO TID 12/03/18 [History] Pantoprazole Sodium [Protonix] 40 mg PO TID 12/03/18 [History] Spironolactone [Aldactone] 150 mg PO BID 12/03/18 [History] Zinc Gluconate 100 mg PO BID 12/03/18 [History] Ascorbic Acid [C-500] 500 mg PO DAILY #30 tablet 12/05/18 [Rx] Ferrous Sulfate 325 mg PO DAILY #30 tablet 12/05/18 [Rx] Glimepiride [Amaryl] 2 mg PO 0800 #30 tablet 12/05/18 [Rx] SitaGLIPtin [Januvia] 100 mg PO DAILY #30 tablet 12/05/18 [Rx] metFORMIN [Glucophage] 500 mg PO BIDWM #60 tablet 12/05/18 [Rx] Allergy/AdvReac Type Severity Reaction Status Date / Time No Known Allergies Allergy Verified 12/21/18 12:03 All Systems PM: A 10-system review of systems was performed and is negative for pertinent findings except as documented above in the HPI. Review of systems: Review of systems from his November 2018 [facility] hospitalization were reviewed and revised as below. Gen.: His weight increased from 136.078 kg on 03/15/2018 to 148.6 kg on admission November 2018 but has decreased to 140.387 kg now. Cardiovascular: He denies hypertension GA heart failure angina DVT or pulmonary embolus. Respiratory: He is a lifelong nonsmoker and has no documented chronic lung disease other than asthma in childhood GI: As per history of present illness : Denies hematuria dysuria or kidney stones Neurologic: He denies large distribution strokes or seizures Endocrine: As per history of present illness Hematology/oncology: He had anemia in childhood. 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 He had left carpal tunnel surgery. He denies gout or other bone joint or muscle disorders. - Constitutional Vitals: Temp Pulse Resp BP Pulse Ox 98.1 F 87 18 110/61 95 12/22/18 10:50 12/22/18 10:50 12/22/18 10:50 12/22/18 10:50 12/22/18 10:50 Exam: Gen.: He is a well-developed obese male lying in bed who appears in no acute distress HEENT: Head is atraumatic and normocephalic. Eyes: EOMI. There is no scleral icterus. Mouth: Mucosa is moist. Neck: Supple and nontender. There is no thyromegaly or adenopathy noted. Heart: Regular without murmurs gallops or ectopics Lungs: No wheezes or crackles are heard. Abdomen: Soft and nontender. No masses or guarding are noted. Extremities: There is no cyanosis edema or clubbing noted. Dorsalis pedis and posterior tibial pulses are trace palpable bilaterally. Neurologic: Mental status: He is talkative and a good historian. Cranial n erves: Smile is symmetric. Forehead wrinkles bilaterally. Tongue protrudes midline. EOMI. Motor: There is no pronator drift. Cerebellar: Finger to nose is intact bilaterally. Skin: Warm and dry Internal Med - H&P Results - Labs CBC & Chem 7: 12/22/18 05:02 12/22/18 05:02 Labs: Short CBC 12/21/18 12/22/18 Range/Units 12:45 05:02 WBC 5.5 6.0 (4.3-11.1) K/mcL Hgb 11.8 L 10.9 L (12.9-16.9) g/dL Hct 35.2 L 32.7 L (37.5-50.1) % Plt Count 86 L 88 L (140-400) K/mcL Neutrophils # 3.2 3.5 (1.6-8.9) K/mcL BMP 12/21/18 12/22/18 12:45 05:02 Sodium 135 L 137 Potassium 3.8 3.5 Chloride 98 101 Carbon Dioxide 32 H 29 BUN 11 14 Creatinine 0.82 0.82 Glucose 113 H 160 H Calcium 9.0 8.8 Cardiac Enzymes 12/21/18 Range/Units 12:45 Troponin I < 0.03 (< 0.04) ng/mL Liver Function 12/21/18 12/22/18 Range/Units 12:45 05:02 Total Bilirubin 2.5 H 2.1 H (0.3-1.0) mg/dL Direct Bilirubin 0.6 H (0.0-0.2) mg/dL AST 90 H 87 H (13-39) Units/L ALT 77 H 72 H (7-52) Units/L Alkaline Phosphatase 129 H 116 H (34-104) Units/L Albumin 3.0 L 2.8 L (3.5-5.7) g/dL Urine 12/21/18 Range/Units 13:26 Urine Color Dark Yellow (Yellow) Urine Clarity Clear (Clear) Urine pH 7.0 (5.0-8.0) pH Units Ur Specific [place] 1.015 (1.010-1.025) Urine Protein 30 H (Neg-Trace) mg/dL Urine Glucose (UA) Normal (Normal) mg/dL - Impressions ITS Impressions Chest X-Ray 12/21/18 12:20 IMPRESSION: 1. Stable cardiomegaly. No heart failure. 2. No acute cardiopulmonary abnormality. D/ / Dane Benitez MD / Dane Benitez MD Interpreting Provider: Dane Benitez MD Head CT 12/21/18 12:20 IMPRESSION: Stable CT brain with no acute intracranial abnormality. D/ / Charlene Coleman MD / Charlene Coleman MD Interpreting Provider: Charlene Coleman MD
--- NOTE | 2018-12-22 11:57 | Discharge Summary ---
Orders not resulted at time of discharge: Pending orders 12/21/18 12:59 Culture,Blood [BC] Stat Date of Encounter: 12/22/18 Time of Encounter: 10:55 - Discharge Diagnosis (1) Hepatic encephalopathy Priority: Primary Status: Acute (2) Cirrhosis of liver Priority: Secondary Status: Chronic Qualifiers: Hepatic cirrhosis type: unspecified hepatic cirrhosis Ascites presence: with ascites Qualified Code(s): K74.60 - Unspecified cirrhosis of liver; R18.8 - Other ascites (3) Anemia Priority: Secondary Status: Chronic Qualifiers: Anemia type: iron deficiency Iron deficiency anemia type: unspecified iron deficiency Qualified Code(s): D50.9 - Iron deficiency anemia, unspecified (4) DM type 2 (diabetes mellitus, type 2) Priority: Secondary Status: Chronic Qualifiers: Diabetes mellitus intermediate project manager insulin use: without senior care use Diabetes mellitus complication status: without complication Qualified Code(s): E11.9 - Type 2 diabetes mellitus without complications Hospital course: Mr. Henriquez is a 48 year old male who came to emergency room stating he has felt weak since discharge from [facility] approximately 3 weeks ago. He has felt "dizzy" but has not fallen. On the day of admission he appeared to be having hallucinations according to his . He was brought to emergency room and evaluated and was felt to have hepatic encephalopathy. He was admitted to [facility] floor for ongoing care needs. Initial orders were written by the emergency room physician. I saw him on December 22 and performed a history physical and discharge. When I saw him he appeared back to his baseline mentally. He was appropriate in conversation. His vital signs remained stable during his hospital stay. Blood sugar showed satisfactory control. I told him I did not feel he needed to be hospitalized further but should follow with his PCP within 1 week and discuss referral to gastroenterology for assessment of his hepatic encephalopathy. I encouraged him to continue his diabetic diet and weight loss and monitoring blood sugars. He will follow with his PCP Lissette Mayberry CNP within 1 week. - Time Spent with Patient Total time spent providing and/or coordinating discharge services: - Discharge Medications Prescriptions: Continued Rifaximin [Xifaxan] 550 mg PO BID Multivitamin [One Daily Multivitamin] 1 each PO DAILY Pantoprazole Sodium [Protonix] 40 mg PO TID Lactulose [Enulose] 60 gm PO TID Escitalopram [Lexapro] 10 mg PO DAILY Zinc Gluconate 100 mg PO BID Bumetanide 2 mg PO BID Atorvastatin Calcium [Lipitor] 20 mg PO DAILY Spironolactone [Aldactone] 150 mg PO BID Ascorbic Acid [C-500] 500 mg PO DAILY #30 tablet Ferrous Sulfate 325 mg PO DAILY #30 tablet Glimepiride [Amaryl] 2 mg PO 0800 #30 tablet metFORMIN [Glucophage] 500 mg PO BIDWM #60 tablet SitaGLIPtin [Januvia] 100 mg PO DAILY #30 tablet Home Medications: Rifaximin [Xifaxan] 550 mg PO BID 10/22/17 [History] Multivitamin [One Daily Multivitamin] 1 each PO DAILY 11/10/17 [History] Atorvastatin Calcium [Lipitor] 20 mg PO DAILY 12/03/18 [History] Bumetanide 2 mg PO BID 12/03/18 [History] Escitalopram [Lexapro] 10 mg PO DAILY 12/03/18 [History] Lactulose [Enulose] 60 gm PO TID 12/03/18 [History] Pantoprazole Sodium [Protonix] 40 mg PO TID 12/03/18 [History] Spironolactone [Aldactone] 150 mg PO BID 12/03/18 [History] Zinc Gluconate 100 mg PO BID 12/03/18 [History] Ascorbic Acid [C-500] 500 mg PO DAILY #30 tablet 12/05/18 [Rx] Ferrous Sulfate 325 mg PO DAILY #30 tablet 12/05/18 [Rx] Glimepiride [Amaryl] 2 mg PO 0800 #30 tablet 12/05/18 [Rx] SitaGLIPtin [Januvia] 100 mg PO DAILY #30 tablet 12/05/18 [Rx] metFORMIN [Glucophage] 500 mg PO BIDWM #60 tablet 12/05/18 [Rx] Allergies/Adverse Reactions: Allergy/AdvReac Type Severity Reaction Status Date / Time No Known Allergies Allergy Verified 12/21/18 12:03 Date of admission: 12/21/18 15:24 Primary care physician: Cherise Naidu CNP - Constitutional Vitals: Temp Pulse Resp BP Pulse Ox 98.1 F 87 18 110/61 95 12/22/18 10:50 12/22/18 10:50 12/22/18 10:50 12/22/18 10:50 12/22/18 10:50 - Patient Status Disposition: Home, Self-Care Condition: Fair - Discharge Instructions Follow Up With: Cherise Naidu, DOUBLER HELPER [Primary Care Provider] - 1 week - Diet and Activity Activity: resume usual activities as tolerated Diet: diabetic diet, low fat, low cholesterol
== END 2018-12-22 12:20 | disposition home or self-care (01) ==
LOC: EMEROOPIK 12:01 → INPPIK 12:01
PROVIDERS: ADMIT Internal Medicine; ATTEND Internal Medicine

== ENCOUNTER 2019-03-04 14:00 | Observation (INO) ==
--- NOTE | 2019-03-04 14:15 | Emergency Department Note ---
Disposition Clinical Impression: Altered mental state, Hyperammonemia, Anemia Disposition: Admitted As Inpatient Forms: ED Satisfaction Letter Time of Disposition: 18:00 Altered Mental Status HPI - General Chief Complaint: ED Altered Mental Status Stated Complaint: ams Time Seen by Provider: 03/04/19 14:10 Source: family Limitations: altered mental status Nursing Notes Reviewed: Yes Vital Signs Reviewed: Yes - History of Present Illness HPI Narrative: Patient has been more confused according to caregiver over the last 3 days his been sleeping a lot. Sensory is been taking his lactulose like he supposed to. He gets this way when his ammonia level climbs. He denies any complaints present time. He says he does not think his lactulose is working he has not had a fever chills nausea vomiting or other complaints. MD complaint: altered mental status Onset (ago): day(s) (3 days) Timing confirmed by: spouse Pain Scale: 0 Context: history of similar presentation Associated symptoms: Reports: denies other symptoms - Related Data Home Medications Medication Instructions Recorded Confirmed Rifaximin [Xifaxan] 550 mg PO BID 10/22/17 03/04/19 Multivitamin [One Daily 1 each PO DAILY 11/10/17 03/04/19 Multivitamin] Atorvastatin Calcium [Lipitor] 20 mg PO DAILY 12/03/18 03/04/19 Escitalopram [Lexapro] 10 mg PO DAILY 12/03/18 03/04/19 Lactulose [Enulose] 60 gm PO TID 12/03/18 03/04/19 Pantoprazole Sodium [Protonix] 40 mg PO TID 12/03/18 03/04/19 Zinc Gluconate 100 mg PO BID 12/03/18 03/04/19 Bumetanide 2 mg PO BID 03/04/19 03/04/19 Spironolactone [Aldactone] 150 mg PO BID 03/04/19 03/04/19 Previous Rx's Medication Instructions Recorded Ferrous Sulfate 325 mg PO DAILY #30 tablet 12/05/18 Glimepiride [Amaryl] 2 mg PO 0800 #30 tablet 12/05/18 metFORMIN [Glucophage] 500 mg PO BIDWM #60 tablet 12/05/18 Allergies Allergy/AdvReac Type Severity Reaction Status Date / Time No Known Allergies Allergy Verified 12/21/18 12:03 All systems ED: reviewed and negative except as stated. Review of Systems: As Per HPI Constitutional: Denies: fever, chills, weakness, weight change Eyes: Denies: eye pain, eye discharge, vision change ENT ED: Denies: ear pain, throat pain, dental pain, hearing loss, epistaxis, congestion, dysphagia Cardiovascular: Denies: chest pain, palpitations, dyspnea on exertion, edema, syncope Respiratory: Denies: cough, dyspnea, wheezes, hemoptysis, stridor Gastrointestinal: Denies: abdominal pain, nausea, vomiting, diarrhea, constipation, hematemesis, melena, hematochezia Genitourinary: Denies: urgency, dysuria, frequency, hematuria Musculoskeletal: Denies: back pain, neck pain, arthralgia, myalgia Integumentary: Denies: rash, abrasion, lesions Neurological: Reports: confusion Psychiatric: Denies: anxiety, depression, suicidal thoughts, homicidal thoughts, auditory hallucinations, visual hallucinations Endocrine: Denies: fatigue Hematological/Lymphatic: Denies: easy bleeding, easy bruising Allergic/Immunologic: Denies: facial swelling, urticaria Past Medical History - Past Medical History Attestation: Yes The following information was validated with the patient. Source: patient, nursing notes reviewed Medical history: Reports: cirrhosis, diabetes, GERD, hypertension, renal disease Surgical history: Reports: orthopedic, other, other Psychiatric history: Reports: depression - Social History Smoking Status: Never smoker Smokeless Tobacco Status: No Alcohol use: Reports: none Drug use: Reports: none Physical Exam - General Limitations: altered mental status General appearance: alert, in no apparent distress - Head Head exam: atraumatic, normocephalic, normal inspection - Eye Eye exam: Present: normal appearance, PERRL, EOMI - ENT ENT exam: normal exam, normal oropharynx, mucous membranes moist - Neck Neck exam: Present: normal inspection, full ROM, trachea midline - Chest Chest inspection: Present: normal inspection, symmetric chest wall rise - Respiratory Respiratory exam: Present: normal lung sounds bilaterally - Cardiovascular Cardiovascular exam: Present: regular rate, normal rhythm, normal heart sounds - Abdominal Exam Abdominal exam: Present: soft, Non-Tender, normal bowel sounds - Extremities Exam Extremities exam: Present: normal inspection, full ROM. Absent: tenderness, pedal edema - Back Exam Back exam: Present: normal inspection - Neurological Exam Neurological exam: Present: alert - Psychiatric Psychiatric exam: Present: normal affect, normal mood - Skin Skin exam: Present: warm, dry, intact, normal color Course Vital Signs Temperature 98.0 F 03/04/19 14:03 Pulse Rate 87 03/04/19 14:03 Respiratory Rate 18 03/04/19 14:03 Blood Pressure 126/74 03/04/19 14:03 O2 Sat by Pulse Oximetry 96 03/04/19 14:03 Temperature 98.0 F 03/04/19 14:03 Pulse Rate 86 03/04/19 14:28 Respiratory Rate 18 03/04/19 14:28 Blood Pressure 136/76 03/04/19 14:28 O2 Sat by Pulse Oximetry 94 03/04/19 14:28 Oxygen Delivery Oxygen Delivery Room Air Altered Mental Status - MDM Narrative Medical decision making narrative: Case was discussed with Dr. Gomez who is graciously accepted admission - Lab Data Lab results reviewed: Yes I reviewed the patient's lab results. - Radiology Data Radiology results reviewed: Yes I reviewed the patient's radiology results. - EKG Data EKG attestation: Yes I reviewed and interpreted this EKG. EKG results narrative: EKG read by myself shows a sinus rhythm with rate 85 bpm MN interval of 163 ms QRS duration 92 ms QT and QTC intervals 404 and 481 ms respectively R axis of [address] elevation TPA Checklist - LKW: 3-4.5 hrs Add. Warnings/Precautions Patient/family understanding: The patient/family members have been counseled and understood the risk, benefit, and alternatives of treatment.
[2019-03-04 15:13] LABS: Basophils % 0.9 %; Eosinophils # 0.4 K/mcL (0.0-0.6); Eosinophils % 8.3 %; Hematocrit 29.7 % (37.5-50.1); Hemoglobin 9.9 g/dL (12.9-16.9); Immature Granulocytes % 0.2 % (0-4); Lymphocytes # 0.8 K/mcL (0.6-4.6); Lymphocytes % 18.2 %; Mean Corpuscular HGB Conc 33.3 g/dL (31.6-35.5); Mean Corpuscular Hemoglobin 34.5 pg (28.0-33.3); Mean Corpuscular Volume 103.5 fL (83.0-100.0); Mean Platelet Volume 10.1 fL (9.4-12.4); Monocytes # 0.5 K/mcL (0.0-1.3); Monocytes % 10.6 %; Neutrophils # 2.6 K/mcL (1.6-8.9); Red Blood Count 2.87 M/mcL (4.19-5.50); Red Cell Distribution Width 16.9 % (11.5-14.5); Segmented Neutrophils % 61.8 %; White Blood Count 4.2 K/mcL (4.3-11.1)
[2019-03-04 15:14] LABS: Platelet Count 82 K/mcL (140-400)
[2019-03-04 15:23] LABS: INR 1.3; Prothrombin Time 14.6 Seconds (9.4-12.1)
[2019-03-04 15:26] LABS: Activated Partial Thrombo Time 35.7 Seconds (26.0-36.0)
[2019-03-04 15:34] LABS: Troponin I < 0.03 ng/mL (< 0.04)
[2019-03-04 15:35] LABS: Alanine Aminotransferase 59 Units/L (7-52); Albumin 2.8 g/dL (3.5-5.7); Albumin/Globulin Ratio 0.9 (1.1-2.2); Alkaline Phosphatase 125 Units/L (34-104); Aspartate Amino Transferase 84 Units/L (13-39); BUN/Creatinine Ratio 16 (6-26); Bilirubin,Total 1.5 mg/dL (0.3-1.0); Blood Urea Nitrogen 10 mg/dL (6-20); Calcium 8.8 mg/dL (8.6-10.3); Carbon Dioxide 26 mEq/L (23-29); Chloride 108 mEq/L (98-107); Globulin 3.1 g/dL (2.4-3.5); Glucose 243 mg/dL (70-105); Osmolality,Calculated 293 (280-300); Potassium 4.3 mEq/L (3.5-5.1); Sodium 138 mEq/L (136-145); Total Protein 5.9 g/dL (6.4-8.9); eGFR For African Americans > 60 (> 60); eGFR For Non-African Americans > 60 (> 60)
[2019-03-04 15:56] LABS: Bilirubin,Urine Small (Negative); Blood,Urine Negative (Negative); Clarity,Urine Clear (Clear); Color,Urine Yellow (Yellow); Glucose,Urine (UA) Normal (Normal); Ketones,Urine Negative (Negative); Leukocyte Esterase,Urine Negative (Negative); Nitrite,Urine Negative (Negative); PH,Urine 6.5 pH Units (5.0-8.0); Protein,Urine Trace mg/dL (Neg-Trace); Specific Gravity,Urine 1.025 (1.010-1.025)
[2019-03-04 16:07] LABS: Amphetamine Screen,Urine Negative ng/mL (Cutoff=1000); Barbiturate Screen,Urine Negative ng/mL (Cutoff=200); Benzodiazepines Screen,Urine Negative ng/mL (Cutoff=200); Cannabinoid Screen,Urine Negative ng/mL (Cutoff = 50); Cocaine Screen,Urine Negative ng/mL (Cutoff= 300); Opiate Screen,Urine Negative ng/mL (Cutoff=300); Phencyclidine Screen,Urine Negative ng/mL (Cutoff=25)
[2019-03-04] MEDS ORDERED: Lactulose Oral Soln 20 GM/30 ML UDC PO ONE (16:16)
[2019-03-04] MEDS ORDERED: Naloxone 0.4 MG/ML INJ IVP PRN (20:03)
[2019-03-04] MEDS ORDERED: Lactulose Oral Soln 20 GM/30 ML UDC PO SCH (21:00)
[2019-03-04] MEDS: *HR* Metformin 500 MG TABLET PO SCH (23:12)
[2019-03-04] MEDS: Spironolactone 25 MG TABLET PO SCH (23:12)
[2019-03-04] MEDS: Bumetanide 1 MG TABLET PO SCH (23:12)
[2019-03-04] MEDS: 0.9 % Sodium Chloride 1,000 ML IVC SCH (23:20)
[2019-03-04] MEDS: Lactulose Oral Soln 20 GM/30 ML UDC PO SCH (23:21)
[2019-03-05 07:03] LABS: Basophils # 0.1 K/mcL (0.0-0.2); Basophils % 1.4 %; Eosinophils # 0.4 K/mcL (0.0-0.6); Eosinophils % 8.5 %; Hematocrit 30.8 % (37.5-50.1); Hemoglobin 10.3 g/dL (12.9-16.9); Immature Granulocytes % 0.2 % (0-4); Lymphocytes # 1.1 K/mcL (0.6-4.6); Lymphocytes % 21.6 %; Mean Corpuscular HGB Conc 33.4 g/dL (31.6-35.5); Mean Corpuscular Hemoglobin 34.1 pg (28.0-33.3); Mean Platelet Volume 10.2 fL (9.4-12.4); Monocytes # 0.5 K/mcL (0.0-1.3); Monocytes % 10.7 %; Neutrophils # 2.9 K/mcL (1.6-8.9); Red Blood Count 3.02 M/mcL (4.19-5.50); Red Cell Distribution Width 16.7 % (11.5-14.5); Segmented Neutrophils % 57.6 %; White Blood Count 5.1 K/mcL (4.3-11.1)
[2019-03-05 07:18] LABS: Platelet Count 76 K/mcL (140-400)
[2019-03-05 07:22] LABS: BUN/Creatinine Ratio 17 (6-26); Blood Urea Nitrogen 11 mg/dL (6-20); Carbon Dioxide 25 mEq/L (23-29); Chloride 107 mEq/L (98-107); Glucose 115 mg/dL (70-105); Osmolality,Calculated 286 (280-300); Potassium 3.5 mEq/L (3.5-5.1); Sodium 138 mEq/L (136-145); eGFR For African Americans > 60 (> 60); eGFR For Non-African Americans > 60 (> 60)
[2019-03-05] MEDS: Lactulose Oral Soln 20 GM/30 ML UDC PO SCH ×4 (08:05→21:00)
[2019-03-05] MEDS: *HR* Metformin 500 MG TABLET PO SCH ×2 (08:56→16:13)
[2019-03-05] MEDS: Bumetanide 1 MG TABLET PO SCH ×2 (08:56→16:13)
[2019-03-05] MEDS: Spironolactone 25 MG TABLET PO SCH ×2 (08:56→20:59)
[2019-03-05] MEDS: Multivit/Ca/Min/Fe/FA 1 TAB TABLET PO SCH (08:56)
[2019-03-05] MEDS: *HR* Glimepiride 2 MG TABLET PO SCH (08:57)
[2019-03-05] MEDS: Zinc Sulfate 220 MG CAPSULE PO SCH (08:57)
[2019-03-05] MEDS: Ondansetron ODT 4 MG TAB.RAPDIS SL PRN (10:30)
--- NOTE | 2019-03-05 12:58 | Internal Med History&Physical ---
Date of Encounter: 03/05/19 Time of Encounter: 11:55 Assessment and Plan (1) Cirrhosis of liver Current visit: No Status: Chronic Child Ramos class B with MELD score approximately 11. Continue lactulose and Xifaxan. Recheck labs. Qualifiers: Hepatic cirrhosis type: unspecified hepatic cirrhosis Ascites presence: with ascites Qualified Code(s): K74.60 - Unspecified cirrhosis of liver; R18.8 - Other ascites (2) Esophageal varices Current visit: No Status: Acute Monitor hemoglobin. GI can determine if nonselective beta blockers are indicated. Qualifiers: Esophageal varices type: unspecified type Esophageal varices bleeding: without bleeding Qualified Code(s): I85.00 - Esophageal varices without bleeding (3) Thrombocytopenia Current visit: No Status: Acute Stable since August 2017. Continue to monitor periodically. (4) Hypertension Current visit: No Status: Chronic Continue Aldactone and Bumex. Qualifiers: Hypertension type: essential hypertension Qualified Code(s): I10 - Essential (primary) hypertension (5) Hepatic encephalopathy Current visit: No Status: Acute Continue lactulose and Xifaxan. (6) Anemia Current visit: Yes Status: Chronic Check anemia testing and guaiac stool. Qualifiers: Anemia type: unspecified type Qualified Code(s): D64.9 - Anemia, unspecified (7) DM type 2 (diabetes mellitus, type 2) Current visit: No Status: Chronic Check hemoglobin A1c. Qualifiers: Diabetes mellitus jail insulin use: without jail use Diabetes mellitus complication status: without complication Qualified Code(s): E11.9 - Type 2 diabetes mellitus without complications Internal Medicine - H&P: HPI Chief complaint: Confusion, lethargy, hallucinations Admitted From: Emergency Dept Plans for Post Hospital Care: Home History of present illness: Mr. Henriquez is a 49 year old male who came to emergency room with 3 day history of lethargy confusion and hallucinations. His noted slight instability in walking that he had experienced no falls. He was evaluated emergency room was found to have elevated ammonia level. He was admitted to [facility] floor for ongoing care needs. He has documented cirrhosis felt to be secondary to alpha-1 antitrypsin deficiency (A1AT ZZ homozygous on 10/21/2017). He has had 3 EGDs in the past since August 2017. Colonoscopy July 2018 showed colon polyps which were resected. He follows regularly with a associate java developer at [facility] [place]. He has also been evaluated at [facility] for liver transplant. He denies missing any doses of lactulose or rifaximin. He does not use alcohol or OTC medications. He has history of pancreatitis early 2017 without recurrence. He denies other disorders of his liver gallbladder or exocrine pancreas. He reports his stools have gotten darker in the past few days without visible bright red blood. Past Med Surg Social Fam HX - Past Medical History Medical history: cirrhosis, diabetes, GERD, hypertension, renal disease Additional medical history: alpha one intryptysin defiency Psychiatric history: depression - Past Surgical History Surgical History: orthopedic, other, other Additional surgical history: carpal tunnel left. nodules vocal cords. left knee - Social History Smoking Status: Never smoker Smokeless Tobacco Status: No Alcohol use: none Drug use: none - Family History Mother History Unknown: Yes Living Status: Hx Family Cardiac Disorders: No Hx Family Respiratory Disorders: No Hx Family Cancer: Yes Hx Family Endocrine Disorder: Yes Internal Medicine - H&P: Meds Rifaximin [Xifaxan] 550 mg PO BID 10/22/17 [History] Multivitamin [One Daily Multivitamin] 1 each PO DAILY 11/10/17 [History] Atorvastatin Calcium [Lipitor] 20 mg PO DAILY 12/03/18 [History] Escitalopram [Lexapro] 10 mg PO DAILY 12/03/18 [History] Lactulose [Enulose] 60 gm PO TID 12/03/18 [History] Pantoprazole Sodium [Protonix] 40 mg PO BID 12/03/18 [History] Zinc Gluconate 100 mg PO BID 12/03/18 [History] Ferrous Sulfate 325 mg PO DAILY #30 tablet 12/05/18 [Rx] Glimepiride [Amaryl] 2 mg PO 0800 #30 tablet 12/05/18 [Rx] metFORMIN [Glucophage] 500 mg PO BIDWM #60 tablet 12/05/18 [Rx] Bumetanide 2 mg PO BID 03/04/19 [History] Spironolactone [Aldactone] 150 mg PO BID 03/04/19 [History] Allergy/AdvReac Type Severity Reaction Status Date / Time No Known Allergies Allergy Verified 12/21/18 12:03 All Systems PM: A 10-system review of systems was performed and is negative for pertinent findings except as documented above in the HPI. Review of systems: Review of systems from his December 2018 [facility] hospitalization were reviewed and revised as below. Gen.: His weight has increased from 136.078 kg on 03/15/2018 to 150.621 kilograms now Cardiovascular: He denies hypertension [place] heart failure angina DVT or pulmonary embolus. Respiratory: He is a lifelong nonsmoker and has no documented chronic lung disease other than asthma in childhood GI: As per history of present illness : Denies hematuria dysuria or kidney stones Neurologic: He denies large distribution strokes or seizures Endocrine: He was diagnosed with DM2 November 2018. Hemoglobin A1c was significantly elevated at 12.2%. He was started on Amaryl and Glucophage. He denies thyroid disease or hyperlipidemia. Hematology/oncology: He had anemia on labs in emergency room. 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 He had left carpal tunnel surgery. He denies gout or other bone joint or muscle disorders. - Constitutional Vitals: Temp Pulse Resp BP Pulse Ox 98.1 F 86 16 129/73 98 03/05/19 11:28 03/05/19 11:28 03/05/19 11:28 03/05/19 11:28 03/05/19 11:28 Exam: Gen.: He is a well-developed obese male sitting in a chair at bedside who appears in no acute distress HEENT: Head is atraumatic and normocephalic. Eyes: EOMI. There is no scleral icterus. Mouth: Mucosa is moist. Neck: Supple and nontender. There is no thyromegaly or adenopathy noted. Heart: Regular without murmurs gallops or ectopics Lungs: No wheezes or crackles are heard. Abdomen: Soft and nontender. Exam is limited because he is in the seated pos ition. Extremities: He has 1+ edema of the dorsal feet and lower legs bilaterally. Dorsalis pedis and posterior tibial pulses are not palpable. Neurologic: Mental status: He is talkative and seems to be a reliable historian but speech is slower than normal. Cranial nerves: Smile is symmetric. Forehead wrinkles bilaterally. Tongue protrudes midline. EOMI. Motor: There is no pronator drift. There is no asterixis. Cerebellar: Finger to nose is intact bilaterally. Skin: Warm and dry Internal Med - H&P Results - Labs CBC & Chem 7: 03/05/19 06:38 03/05/19 06:38 Labs: Short CBC 03/04/19 03/05/19 Range/Units 15:04 06:38 WBC 4.2 L 5.1 (4.3-11.1) K/mcL Hgb 9.9 L 10.3 L (12.9-16.9) g/dL Hct 29.7 L 30.8 L (37.5-50.1) % Plt Count 82 L 76 L (140-400) K/mcL Neutrophils # 2.6 2.9 (1.6-8.9) K/mcL BMP 03/04/19 03/05/19 15:04 06:38 Sodium 138 138 Potassium 4.3 3.5 Chloride 108 H 107 Carbon Dioxide 26 25 BUN 10 11 Creatinine 0.64 L 0.64 L Glucose 243 H 115 H Calcium 8.8 9.0 Cardiac Enzymes 03/04/19 Range/Units 15:04 Troponin I < 0.03 (< 0.04) ng/mL Liver Function 03/04/19 Range/Units 15:04 Total Bilirubin 1.5 H (0.3-1.0) mg/dL AST 84 H (13-39) Units/L ALT 59 H (7-52) Units/L Alkaline Phosphatase 125 H (34-104) Units/L Albumin 2.8 L (3.5-5.7) g/dL Urine 03/04/19 Range/Units 15:47 Urine Color Yellow (Yellow) Urine Clarity Clear (Clear) Urine pH 6.5 (5.0-8.0) pH Units Ur Specific [place] 1.025 (1.010-1.025) Urine Protein Trace (Neg-Trace) mg/dL Urine Glucose (UA) Normal (Normal) mg/dL - Impressions ITS Impressions Head CT 03/04/19 14:10 IMPRESSION: No acute intracranial abnormality. D/ / Francois Mas MD / Francois Mas MD Interpreting Provider: Francois Mas MD
[2019-03-05] MEDS ORDERED: Lactulose Oral Soln 20 GM/30 ML UDC PO SCH (15:00)
[2019-03-05] MEDS: 0.9 % Sodium Chloride 1,000 ML IVC SCH (16:19)
[2019-03-05 21:01] LABS: % Iron Saturation 92 % (20-55); Iron 306 mcg/dL (65-175); Transferrin 237 mg/dL (203-362)
[2019-03-05 21:20] LABS: Ferritin 41 ng/mL (20-250)
[2019-03-05 21:34] LABS: Folate > 22.3 ng/mL (3.0-16.0); Vitamin B12 > 1500 pg/mL (250-1100)
[2019-03-06 06:50] VITALS: BP 100/55
[2019-03-06 08:05] LABS: Basophils # 0.1 K/mcL (0.0-0.2); Basophils % 1.4 %; Eosinophils # 0.3 K/mcL (0.0-0.6); Eosinophils % 8.1 %; Hematocrit 29.9 % (37.5-50.1); Hemoglobin 10.1 g/dL (12.9-16.9); Immature Granulocytes % 0.2 % (0-4); Lymphocytes # 1.1 K/mcL (0.6-4.6); Lymphocytes % 24.9 %; Mean Corpuscular HGB Conc 33.8 g/dL (31.6-35.5); Mean Corpuscular Hemoglobin 34.4 pg (28.0-33.3); Mean Corpuscular Volume 101.7 fL (83.0-100.0); Mean Platelet Volume 10.5 fL (9.4-12.4); Monocytes # 0.5 K/mcL (0.0-1.3); Monocytes % 12.1 %; Neutrophils # 2.2 K/mcL (1.6-8.9); Red Blood Count 2.94 M/mcL (4.19-5.50); Red Cell Distribution Width 16.5 % (11.5-14.5); Segmented Neutrophils % 53.3 %; White Blood Count 4.2 K/mcL (4.3-11.1)
[2019-03-06 08:08] LABS: Platelet Count 84 K/mcL (140-400)
[2019-03-06 08:21] LABS: BUN/Creatinine Ratio 17 (6-26); Blood Urea Nitrogen 12 mg/dL (6-20); Calcium 8.3 mg/dL (8.6-10.3); Carbon Dioxide 26 mEq/L (23-29); Chloride 105 mEq/L (98-107); Glucose 121 mg/dL (70-105); Osmolality,Calculated 285 (280-300); Potassium 3.6 mEq/L (3.5-5.1); Sodium 137 mEq/L (136-145); eGFR For African Americans > 60 (> 60); eGFR For Non-African Americans > 60 (> 60)
[2019-03-06] MEDS: *HR* Metformin 500 MG TABLET PO SCH (09:34)
[2019-03-06] MEDS: Lactulose Oral Soln 20 GM/30 ML UDC PO SCH (09:34)
[2019-03-06] MEDS: Spironolactone 25 MG TABLET PO SCH (09:35)
[2019-03-06] MEDS: Ondansetron ODT 4 MG TAB.RAPDIS SL PRN (09:35)
[2019-03-06] MEDS: Multivit/Ca/Min/Fe/FA 1 TAB TABLET PO SCH (09:36)
[2019-03-06] MEDS: *HR* Glimepiride 2 MG TABLET PO SCH (09:36)
[2019-03-06] MEDS: Zinc Sulfate 220 MG CAPSULE PO SCH (09:36)
[2019-03-06] MEDS: Bumetanide 1 MG TABLET PO SCH (09:36)
[2019-03-06 10:42] LABS: Estimated Average Glucose 120 mg/dl
--- NOTE | 2019-03-06 10:56 | Discharge Summary ---
Orders not resulted at time of discharge: Pending orders 03/04/19 14:10 EKG [ECG 12 lead ECG] [ECG] Stat Date of Encounter: 03/06/19 Time of Encounter: 10:25 - Discharge Diagnosis (1) Hepatic encephalopathy Priority: Primary Status: Acute (2) Cirrhosis of liver Priority: Secondary Status: Chronic Qualifiers: Hepatic cirrhosis type: unspecified hepatic cirrhosis Ascites presence: with ascites Qualified Code(s): K74.60 - Unspecified cirrhosis of liver; R18.8 - Other ascites (3) Esophageal varices Priority: Secondary Status: Chronic Qualifiers: Esophageal varices type: unspecified type Esophageal varices bleeding: without bleeding Qualified Code(s): I85.00 - Esophageal varices without bleeding (4) Thrombocytopenia Priority: Secondary Status: Chronic (5) Hypertension Priority: Secondary Status: Chronic Qualifiers: Hypertension type: essential hypertension Qualified Code(s): I10 - Essential (primary) hypertension (6) Anemia Priority: Secondary Status: Chronic Qualifiers: Anemia type: unspecified type Qualified Code(s): D64.9 - Anemia, unspecified (7) DM type 2 (diabetes mellitus, type 2) Priority: Secondary Status: Chronic Qualifiers: Diabetes mellitus [facility] insulin use: without terminal gauger use Diabetes mellitus complication status: without complication Qualified Code(s): E11.9 - Type 2 diabetes mellitus without complications Hospital course: Mr. Henriquez is a 49 year old male who came to emergency room with 3 day history of lethargy confusion and hallucinations. His noted slight instability in walking but he had experienced no falls. He was evaluated in emergency room was found to have elevated ammonia level. He was admitted to [facility] floor for ongoing care needs. Initial orders were written by the emergency room physician. I saw him on March 05 and performed the history and physical. Lactulose and Xifaxan were continued. Hemoglobin remained stable at 10.1 on day of discharge. He remained afebrile and vital signs were stable. Ammonia level recheck on March 05 showed decrease to 65 but had risen to 107 on day of discharge. I explained to him he should discuss with his GI provider about additional therapy for hepatic encephalopathy. Anemia testing showed iron 306, transferrin saturation 92%, transferrin 237, ferritin 41, B12 >1500, and folate> 22.3. His PCP and/or GI provider can determine if iron therapy will be continued. TSH returned normal at 2.754. Urine drug screen showed no positive findings. On March 06 I felt he was stable for discharge home. I explained to him he should follow with his GI provider to discuss additional treatment for hepatic encephalopathy and cirrhosis. Determination can also be made if a nonselective beta jamila should be given for esophageal varices. He will follow with his PCP Lissette Mayberry CNP within 1 week. - Time Spent with Patient Total time spent providing and/or coordinating discharge services: - Discharge Medications Prescriptions: Continued Rifaximin [Xifaxan] 550 mg PO BID Multivitamin [One Daily Multivitamin] 1 each PO DAILY Pantoprazole Sodium [Protonix] 40 mg PO BID Lactulose [Enulose] 60 gm PO TID Escitalopram [Lexapro] 10 mg PO DAILY Zinc Gluconate 100 mg PO BID Atorvastatin Calcium [Lipitor] 20 mg PO DAILY Ferrous Sulfate 325 mg PO DAILY #30 tablet Glimepiride [Amaryl] 2 mg PO 0800 #30 tablet metFORMIN [Glucophage] 500 mg PO BIDWM #60 tablet Spironolactone [Aldactone] 150 mg PO BID Bumetanide 2 mg PO BID Home Medications: Rifaximin [Xifaxan] 550 mg PO BID 10/22/17 [History] Multivitamin [One Daily Multivitamin] 1 each PO DAILY 11/10/17 [History] Atorvastatin Calcium [Lipitor] 20 mg PO DAILY 12/03/18 [History] Escitalopram [Lexapro] 10 mg PO DAILY 12/03/18 [History] Lactulose [Enulose] 60 gm PO TID 12/03/18 [History] Pantoprazole Sodium [Protonix] 40 mg PO BID 12/03/18 [History] Zinc Gluconate 100 mg PO BID 12/03/18 [History] Ferrous Sulfate 325 mg PO DAILY #30 tablet 12/05/18 [Rx] Glimepiride [Amaryl] 2 mg PO 0800 #30 tablet 12/05/18 [Rx] metFORMIN [Glucophage] 500 mg PO BIDWM #60 tablet 12/05/18 [Rx] Bumetanide 2 mg PO BID 03/04/19 [History] Spironolactone [Aldactone] 150 mg PO BID 03/04/19 [History] Allergies/Adverse Reactions: Allergy/AdvReac Type Severity Reaction Status Date / Time No Known Allergies Allergy Verified 12/21/18 12:03 Date of admission: 03/04/19 16:51 Primary care physician: Lissette Mayberry CNP - Constitutional Vitals: Temp Pulse Resp BP Pulse Ox 98.3 F 86 18 100/55 95 03/06/19 06:48 03/06/19 06:48 03/06/19 06:48 03/06/19 06:48 03/06/19 06:48 - Patient Status Disposition: Home, Self-Care - Discharge Instructions Follow Up With: Lissette Mayberry CNP [Primary Care Provider] - 1 week - Diet and Activity Activity: resume usual activities as tolerated Diet: advance to your usual diet
--- NOTE | 2019-03-06 16:59 | Electrocardiograph Report ---
[place] [id number] Test Date: 2019-03-04 Pat Name: Jaleel Henriquez Department: EDP-14 Room: [facility] Gender: M Representative: : [id number] Requested By: James Call Order Number: [id number] [place] MD: Tyler Chang Measurements Intervals [place] Rate: 85 P: 7 VT: 163 QRS: 46 QRSD: 92 T: 31 QT: 404 QTc: 481 Interpretive Statements Sinus rhythm Low voltage, precordial leads Abnormal R-wave progression, early transition Electronically Signed On 03-06-2019 16:57:39 EDT by Tyler Chang
== END 2019-03-06 11:55 | disposition home or self-care (01) ==
LOC: EMEROOPIK 14:00 → INPPIK 14:00
PROVIDERS: ADMIT Internal Medicine; ATTEND Internal Medicine

== ENCOUNTER 2019-05-12 15:38 | Inpatient (IN) ==
--- NOTE | 2019-05-12 15:44 | Emergency Department Note ---
Disposition Clinical Impression: Hepatic encephalopathy Disposition: Admitted As Inpatient Condition: Good Referrals: NONE,PCP [Primary Care Provider] - Forms: ED Satisfaction Letter Time of Disposition: 17:05 Altered Mental Status HPI - General Chief Complaint: ED Altered Mental Status Stated Complaint: AMS Time Seen by Provider: 05/12/19 15:43 Source: patient Mode of arrival: ambulatory Limitations: no limitations Nursing Notes Reviewed: Yes Vital Signs Reviewed: Yes - History of Present Illness HPI Narrative: 49-year-old male who presents today with altered mental status. He has a history of hepatic encephalopathy. He states that he just got out of the hospital on Wednesday. They give him a lactulose enema while he was in the hospital not seem to help things. She states that she is giving him 45 and also lactulose 3 times a day but is not really having any bowel movements. She states that he has a history of cirrhosis from alpha-1 antitrypsin disease. MD complaint: altered mental status - Related Data Home Medications Medication Instructions Recorded Confirmed Atorvastatin Calcium [Lipitor] 20 mg PO DAILY 12/03/18 05/12/19 Pantoprazole Sodium [Protonix] 40 mg PO BID 12/03/18 05/12/19 Zinc Gluconate 100 mg PO BID 12/03/18 05/12/19 Ascorbate Calcium [Vitamin C] 500 mg PO QAM 03/16/19 05/12/19 Glimepiride [Amaryl] 2 mg PO QAM 03/17/19 05/12/19 Lactulose 30 gm PO QID 04/27/19 05/12/19 Bumetanide [Bumex] 4 mg PO BID 05/12/19 05/12/19 Spironolactone [Aldactone] 100 mg PO DAILY 05/12/19 05/12/19 Previous Rx's Medication Instructions Recorded Ferrous Sulfate 325 mg PO DAILY #30 tablet 12/05/18 metFORMIN [Glucophage] 500 mg PO BIDWM #60 tablet 12/05/18 Rifaximin [Xifaxan] 550 mg PO BID 30 Days #60 tablet 03/18/19 Folic Acid 1 mg PO DAILY #30 tablet 05/07/19 Multivitamin [One Daily 1 tab PO DAILY #30 tab 05/07/19 Multivitamin] Thiamine (B-1) [Vitamin B-1] 100 mg PO DAILY #30 tablet 05/07/19 Allergies Allergy/AdvReac Type Severity Reaction Status Date / Time No Known Allergies Allergy Verified 04/27/19 23:49 Review of Systems: All other systems are negative except as noted/marked Chart generated with voice recognition software Nursing notes reviewed Old records reviewed Past Medical History - Past Medical History Attestation: Yes The following information was validated with the patient. Source: patient, old records reviewed, nursing notes reviewed Medical history: Reports: cirrhosis, diabetes, GERD, hypertension, liver disease, renal disease Surgical history: Reports: orthopedic, other, other Psychiatric history: Reports: depression - Social History Smoking Status: Never smoker Smokeless Tobacco Status: No Alcohol use: Reports: none Drug use: Reports: none Physical Exam - General Limitations: no limitations General appearance: in no apparent distress, lethargic, obese - Head Head exam: atraumatic, normocephalic, normal inspection - Eye Eye exam: Present: normal appearance, PERRL, EOMI - ENT ENT exam: normal exam, normal oropharynx, mucous membranes moist - Neck Neck exam: Present: normal inspection, full ROM, trachea midline - Chest Chest inspection: Present: normal inspection, symmetric chest wall rise - Respiratory Respiratory exam: Present: normal lung sounds bilaterally - Cardiovascular Cardiovascular exam: Present: regular rate, normal rhythm, normal heart sounds - Abdominal Exam Abdominal exam: Present: soft, Non-Tender, distention, normal bowel sounds. Absent: tenderness, guarding, rebound, rigidity - Extremities Exam Extremities exam: Present: normal inspection, full ROM, normal capillary refill, other (Asterixis). Absent: tenderness, pedal edema - Back Exam Back exam: Present: normal inspection, full ROM. Absent: tenderness - Neurological Exam Neurological exam: Present: CN II-XII intact - Psychiatric Psychiatric exam: Present: flat affect - Skin Skin exam: Present: warm, dry, intact, normal color Course Vital Signs Temperature 98.3 F 05/12/19 15:51 Pulse Rate 88 05/12/19 15:51 Respiratory Rate 18 05/12/19 15:51 Blood Pressure 112/40 05/12/19 15:51 O2 Sat by Pulse Oximetry 98 05/12/19 15:51 Temperature 98.3 F 05/12/19 15:51 Pulse Rate 93 05/12/19 16:52 Respiratory Rate 16 05/12/19 16:52 Blood Pressure 138/86 05/12/19 16:52 O2 Sat by Pulse Oximetry 98 05/12/19 16:52 Oxygen Delivery Oxygen Delivery Room Air Altered Mental Status - MDM Narrative Medical decision making narrative: Lactulose ordered labs obtained 49-year-old male presents today with altered mental status. He is a history of hepatic encephalopathy. On arrival we obtained laboratory and initiated lactulose. Patient is drowsy. He is afebrile vital signs are stable. Lab shows that his ammonia level is elevated. He has a known liver issue. I spoke with Dr. Gomez about the patient he felt comfortable keeping him here. Lactulose enema was ordered. - Medical Records Medical records reviewed: Yes I reviewed the patient's medical records. - Lab Data Lab results reviewed: Yes I reviewed the patient's lab results. Result diagrams: 05/12/19 16:08 05/12/19 16:08 Lab Results 05/12/19 05/12/19 05/12/19 Range/Units 06:08 16:08 16:08 WBC 5.2 (4.3-11.1) K/mcL RBC 2.43 L (4.19-5.50) M/mcL Hgb 8.4 L (12.9-16.9) g/dL Hct 25.1 L (37.5-50.1) % MCV 103.3 H (83.0-100.0) fL MCH 34.6 H (28.0-33.3) pg MCHC 33.5 (31.6-35.5) g/dL RDW 16.7 H (11.5-14.5) % Plt Count 92 L (140-400) K/mcL MPV 10.5 (9.4-12.4) fL Immature Gran % 0.4 (0-4) % Seg Neutrophils % 63.3 % Lymphocytes % 16.6 % Monocytes % 12.3 % Eosinophils % 6.2 % Basophils % 1.2 % Neutrophils # 3.3 (1.6-8.9) K/mcL Lymphocytes # 0.9 (0.6-4.6) K/mcL Monocytes # 0.6 (0.0-1.3) K/mcL Eosinophils # 0.3 (0.0-0.6) K/mcL Basophils # 0.1 (0.0-0.2) K/mcL PT 15.0 H (9.4-12.1) Seconds INR 1.3 APTT 33.0 (26.0-36.0) Seconds Sodium (136-145) mEq/L Potassium (3.5-5.1) mEq/L Chloride (98-107) mEq/L Carbon Dioxide (23-29) mEq/L BUN (6-20) mg/dL Creatinine (0.70-1.30) mg/dL Est GFR ( Amer) (> 60) Est GFR (Non-Af Amer) (> 60) BUN/Creatinine Ratio (6-26) Glucose (70-105) mg/dL Calculated Osmolality (280-300) Calcium (8.6-10.3) mg/dL Magnesium 1.9 (1.6-2.6) mg/dL Total Bilirubin (0.3-1.0) mg/dL Direct Bilirubin (0.0-0.2) mg/dL Indirect Bilirubin (0.0-1.2) mg/dL AST (13-39) Units/L ALT (7-52) Units/L Alkaline Phosphatase (34-104) Units/L Ammonia (16-53) mcmol/L Troponin I < 0.03 (< 0.04) ng/mL Serum Total Protein (6.4-8.9) g/dL Albumin (3.5-5.7) g/dL Globulin (2.4-3.5) g/dL Albumin/Globulin Ratio (1.1-2.2) TSH 2.403 (0.340-5.600) mcIU/mL 05/12/19 05/12/19 Range/Units 16:08 16:08 WBC (4.3-11.1) K/mcL RBC (4.19-5.50) M/mcL Hgb (12.9-16.9) g/dL Hct (37.5-50.1) % MCV (83.0-100.0) fL MCH (28.0-33.3) pg MCHC (31.6-35.5) g/dL RDW (11.5-14.5) % Plt Count (140-400) K/mcL MPV (9.4-12.4) fL Immature Gran % (0-4) % Seg Neutrophils % % Lymphocytes % % Monocytes % % Eosinophils % % Basophils % % Neutrophils # (1.6-8.9) K/mcL Lymphocytes # (0.6-4.6) K/mcL Monocytes # (0.0-1.3) K/mcL Eosinophils # (0.0-0.6) K/mcL Basophils # (0.0-0.2) K/mcL PT (9.4-12.1) Seconds INR APTT (26.0-36.0) Seconds Sodium 139 (136-145) mEq/L Potassium 3.3 L (3.5-5.1) mEq/L Chloride 100 (98-107) mEq/L Carbon Dioxide 31 H (23-29) mEq/L BUN 19 (6-20) mg/dL Creatinine 0.96 (0.70-1.30) mg/dL Est GFR ( Amer) > 60 (> 60) Est GFR (Non-Af Amer) > 60 (> 60) BUN/Creatinine Ratio 20 (6-26) Glucose 122 H (70-105) mg/dL Calculated Osmolality 292 (280-300) Calcium 9.0 (8.6-10.3) mg/dL Magnesium (1.6-2.6) mg/dL Total Bilirubin 1.7 H (0.3-1.0) mg/dL Direct Bilirubin 0.4 H (0.0-0.2) mg/dL Indirect Bilirubin 1.3 H (0.0-1.2) mg/dL AST 62 H (13-39) Units/L ALT 48 (7-52) Units/L Alkaline Phosphatase 130 H (34-104) Units/L Ammonia 114 H (16-53) mcmol/L Troponin I (< 0.04) ng/mL Serum Total Protein 6.1 L (6.4-8.9) g/dL Albumin 3.0 L (3.5-5.7) g/dL Globulin 3.1 (2.4-3.5) g/dL Albumin/Globulin Ratio 1.0 L (1.1-2.2) TSH (0.340-5.600) mcIU/mL - EKG Data EKG attestation: Yes I reviewed and interpreted this EKG. EKG results narrative: EKG interpreted by myself as a sinus rhythm with a rate of 90 QTC [place] [address] elevation TPA Checklist - LKW: 3-4.5 hrs Add. Warnings/Precautions Patient/family understanding: The patient/family members have been counseled and understood the risk, benefit, and alternatives of treatment.
[2019-05-12] MEDS ORDERED: Lactulose Oral Soln 20 GM/30 ML UDC PO STA (16:03)
[2019-05-12 16:19] LABS: Basophils # 0.1 K/mcL (0.0-0.2); Basophils % 1.2 %; Eosinophils # 0.3 K/mcL (0.0-0.6); Eosinophils % 6.2 %; Hematocrit 25.1 % (37.5-50.1); Hemoglobin 8.4 g/dL (12.9-16.9); Immature Granulocytes % 0.4 % (0-4); Lymphocytes # 0.9 K/mcL (0.6-4.6); Lymphocytes % 16.6 %; Mean Corpuscular HGB Conc 33.5 g/dL (31.6-35.5); Mean Corpuscular Hemoglobin 34.6 pg (28.0-33.3); Mean Corpuscular Volume 103.3 fL (83.0-100.0); Mean Platelet Volume 10.5 fL (9.4-12.4); Monocytes # 0.6 K/mcL (0.0-1.3); Monocytes % 12.3 %; Neutrophils # 3.3 K/mcL (1.6-8.9); Red Blood Count 2.43 M/mcL (4.19-5.50); Red Cell Distribution Width 16.7 % (11.5-14.5); Segmented Neutrophils % 63.3 %; White Blood Count 5.2 K/mcL (4.3-11.1)
[2019-05-12 16:24] LABS: INR 1.3; Platelet Count 92 K/mcL (140-400)
[2019-05-12 16:31] LABS: Magnesium 1.9 mg/dL (1.6-2.6)
[2019-05-12 16:32] LABS: Alanine Aminotransferase 48 Units/L (7-52); Alkaline Phosphatase 130 Units/L (34-104); Aspartate Amino Transferase 62 Units/L (13-39); BUN/Creatinine Ratio 20 (6-26); Bilirubin,Direct 0.4 mg/dL (0.0-0.2); Bilirubin,Indirect 1.3 mg/dL (0.0-1.2); Bilirubin,Total 1.7 mg/dL (0.3-1.0); Blood Urea Nitrogen 19 mg/dL (6-20); Carbon Dioxide 31 mEq/L (23-29); Chloride 100 mEq/L (98-107); Globulin 3.1 g/dL (2.4-3.5); Glucose 122 mg/dL (70-105); Osmolality,Calculated 292 (280-300); Potassium 3.3 mEq/L (3.5-5.1); Sodium 139 mEq/L (136-145); Total Protein 6.1 g/dL (6.4-8.9); eGFR For African Americans > 60 (> 60); eGFR For Non-African Americans > 60 (> 60)
[2019-05-12 16:36] LABS: Troponin I < 0.03 ng/mL (< 0.04)
[2019-05-12 16:49] LABS: Thyroid Stimulating Hormone 2.403 mcIU/mL (0.340-5.600)
[2019-05-12] MEDS ORDERED: Mag Hydrox/Al Hydrox/Simeth 30 ML UDC PO PRN (17:38)
[2019-05-12] MEDS ORDERED: Ibuprofen 400 MG TABLET PO PRN (17:38)
[2019-05-12] MEDS ORDERED: Naloxone 0.4 MG/ML INJ IVP PRN (17:38)
[2019-05-12] MEDS ORDERED: Ondansetron 4 MG/2 ML VIAL IVP PRN (17:38)
[2019-05-12] MEDS ORDERED: MOM Conc 10 ML UD.LIQ PO PRN (17:38)
[2019-05-12] MEDS: Lactulose Oral Soln 20 GM/30 ML UDC PO SCH (20:37)
[2019-05-12] MEDS: Bumetanide 1 MG TABLET PO SCH (20:38)
[2019-05-12] MEDS ORDERED: Bumetanide 1 MG TABLET PO SCH (21:00)
[2019-05-13 08:15] LABS: Basophils # 0.1 K/mcL (0.0-0.2); Basophils % 1.3 %; Eosinophils # 0.3 K/mcL (0.0-0.6); Eosinophils % 7.2 %; Hematocrit 25.4 % (37.5-50.1); Hemoglobin 8.3 g/dL (12.9-16.9); Immature Granulocytes % 0.4 % (0-4); Lymphocytes # 1.1 K/mcL (0.6-4.6); Lymphocytes % 23.2 %; Mean Corpuscular HGB Conc 32.7 g/dL (31.6-35.5); Mean Corpuscular Hemoglobin 35.2 pg (28.0-33.3); Mean Corpuscular Volume 107.6 fL (83.0-100.0); Mean Platelet Volume 10.8 fL (9.4-12.4); Monocytes # 0.6 K/mcL (0.0-1.3); Monocytes % 12.1 %; Neutrophils # 2.6 K/mcL (1.6-8.9); Red Blood Count 2.36 M/mcL (4.19-5.50); Red Cell Distribution Width 16.9 % (11.5-14.5); Segmented Neutrophils % 55.8 %; White Blood Count 4.7 K/mcL (4.3-11.1)
[2019-05-13 08:16] LABS: BUN/Creatinine Ratio 20 (6-26); Blood Urea Nitrogen 18 mg/dL (6-20); Calcium 8.8 mg/dL (8.6-10.3); Carbon Dioxide 30 mEq/L (23-29); Chloride 101 mEq/L (98-107); Glucose 114 mg/dL (70-105); Osmolality,Calculated 289 (280-300); Platelet Count 85 K/mcL (140-400); Potassium 3.4 mEq/L (3.5-5.1); Sodium 138 mEq/L (136-145); eGFR For African Americans > 60 (> 60); eGFR For Non-African Americans > 60 (> 60)
--- NOTE | 2019-05-13 10:12 | Internal Med History&Physical ---
Date of Encounter: 05/13/19 Time of Encounter: 09:40 Assessment and Plan (1) Hepatic encephalopathy Current visit: Yes Status: Acute Lactulose dose will be increased to 45 g 4 times a day. Continue rifaximin. Oral Neomycin will be added. Reassess in a.m. (2) Anemia Current visit: No Status: Chronic Anemia and thrombocytopenia likely due to cirrhosis. Anemia testing 04/29/2019 reviewed. Qualifiers: Anemia type: unspecified type Qualified Code(s): D64.9 - Anemia, unspecified (3) DM type 2 (diabetes mellitus, type 2) Current visit: No Status: Chronic Hemoglobin A1c was acceptable at 6.4% on 04/28/2019. Continue Glucophage and Amaryl. Qualifiers: Diabetes mellitus lobsterman insulin use: without skilled nursing use Diabetes mellitus complication status: without complication Qualified Code(s): E11.9 - Type 2 diabetes mellitus without complications Internal Medicine - H&P: HPI Chief complaint: Exacerbation of hepatic encephalopathy Admitted From: Emergency Dept Plans for Post Hospital Care: Home History of present illness: Mr. Henriquez is a 49 year old male who was brought to emergency room with altered mental status. He had been discharged from [facility] May 07 following admission for hepatic encephalopathy. He was discharged on lactulose and rifaximin. It was documented there was concern for medical noncompliance leading to that admission. He was evaluated in emergency room and admitted to [facility] floor for ongoing care needs. He is lethargic and cannot give a reliable history at this time. Remainder of history is obtained from review of available records. He has cirrhosis felt to be secondary to alpha-1 antitrypsin deficiency (A1 AT ZZ homozygous on 10/21/2017.) He has had multiple EGDs since August 2017 with most recent one 03/15/2018 which showed Kim's esophagus with no dysplasia. There was hiatal hernia and portal hypertensive gastropathy. Most recent colonoscopy 11/18/2017 showed 3 mm tubular adenoma and 3 mm hyperplastic polyp with internal hemorrhoids. Repeat exam in 5 years was recommended. He follows regularly with a hot room attendant at [facility]. He has also been evaluated at [facility] for liver transplant. He has history of pancreatitis early 2017 without recurrence. He has no other known disorders of his liver gallbladder or exocrine pancreas Past Med Surg Social Fam HX - Past Medical History Medical history: cirrhosis, diabetes, GERD, hypertension, liver disease, renal disease Additional medical history: alpha one intryptysin defiency. Macrocytosis. Encephalopathy. YUNIOR. Gynecomastia. Anemia Psychiatric history: anxiety, depression - Past Surgical History Surgical History: orthopedic, other, other Additional surgical history: carpal tunnel left. nodules vocal cords. left knee - Social History Smoking Status: Never smoker Smokeless Tobacco Status: No Alcohol use: none Drug use: none - Family History Mother Living Status: Hx Family Cardiac Disorders: No Hx Family Respiratory Disorders: No Hx Family Cancer: No Hx Family Endocrine Disorder: Yes Internal Medicine - H&P: Meds Atorvastatin Calcium [Lipitor] 20 mg PO DAILY 12/03/18 [History] Pantoprazole Sodium [Protonix] 40 mg PO BID 12/03/18 [History] Zinc Gluconate 100 mg PO BID 12/03/18 [History] Ferrous Sulfate 325 mg PO DAILY #30 tablet 12/05/18 [Rx] metFORMIN [Glucophage] 500 mg PO BIDWM #60 tablet 12/05/18 [Rx] Ascorbate Calcium [Vitamin C] 500 mg PO QAM 03/16/19 [History] Glimepiride [Amaryl] 2 mg PO QAM 03/17/19 [History] Rifaximin [Xifaxan] 550 mg PO BID 30 Days #60 tablet 03/18/19 [Rx] Lactulose 30 gm PO QID 04/27/19 [History] Folic Acid 1 mg PO DAILY #30 tablet 05/07/19 [Rx] Multivitamin [One Daily Multivitamin] 1 tab PO DAILY #30 tab 05/07/19 [Rx] Thiamine (B-1) [Vitamin B-1] 100 mg PO DAILY #30 tablet 05/07/19 [Rx] Bumetanide [Bumex] 2 mg PO BID 05/12/19 [History] Spironolactone [Aldactone] 100 mg PO DAILY 05/12/19 [History] Allergy/AdvReac Type Severity Reaction Status Date / Time No Known Allergies Allergy Verified 04/27/19 23:49 All Systems PM: A 10-system review of systems was performed and is negative for pertinent findings except as documented above in the HPI. Review of systems: Review of systems from his February [address] [facility] hospitalization were reviewed and revised as below. Gen.: His weight has increased from 136.078 kg on 03/15/2018 to 146.51 kilograms now Cardiovascular: He denies hypertension IA heart failure angina DVT or pulmonary embolus. Respiratory: He is a lifelong nonsmoker and has no documented chronic lung disease other than asthma in childhood GI: As per history of present illness : Denies hematuria dysuria or kidney stones Neurologic: He denies large distribution strokes or seizures Endocrine: He was diagnosed with DM2 November 2018. Hemoglobin A1c was 6.4% on 04/28/2019. He denies thyroid disease or hyperlipidemia. Hematology/oncology: He had anemia on labs in emergency room. Previous anemia workup show no factor deficiency. 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 He had left carpal tunnel surgery. He denies gout or other bone joint or muscle disorders. - Constitutional Vitals: Temp Pulse Resp BP Pulse Ox 98.5 F 91 17 118/56 95 05/13/19 07:52 05/13/19 07:52 05/13/19 07:52 05/13/19 07:52 05/13/19 07:52 Exam: Gen.: He is a well-developed obese male lying in bed who appears in no acute distress. His eyes are open but he is lethargic and answers some questions. HEENT: Head is atraumatic and normal cephalic. Eyes: EOMI. There is no scleral icterus. Mouth: Mucosa is moist. Neck: Supple and nontender. There is no thyromegaly or adenopathy noted. Heart: Regular without murmurs gallops or ectopics Lungs: No wheezes or crackles are heard. Abdomen: Soft and nontender. No masses or guarding are noted. Chest: He has mild gynecomastia bilaterally. Extremities: There is no cyanosis edema or clubbing noted. Dorsalis pedis and posterior tibial pulses are trace palpable bilaterally. Neurologic: Mental status: He is able to answer a few questions but is slow in response. Cranial nerves: Smile is symmetric. Forehead reveals bilaterally. Tongue protrudes midline. EOMI. Motor: There is slight jerking of his hands on outstretched hand maneuver. He cannot perform pronator drift well. Cer ebellar: He does not seem to comprehend finger to nose instructions. No further neurologic testing is attempted. Skin: Warm and dry Internal Med - H&P Results - Labs CBC & Chem 7: 05/13/19 07:41 05/13/19 07:41 Labs: Short CBC 05/12/19 05/13/19 Range/Units 16:08 07:41 WBC 5.2 4.7 (4.3-11.1) K/mcL Hgb 8.4 L 8.3 L (12.9-16.9) g/dL Hct 25.1 L 25.4 L (37.5-50.1) % Plt Count 92 L 85 L (140-400) K/mcL Neutrophils # 3.3 2.6 (1.6-8.9) K/mcL BMP 05/12/19 05/13/19 16:08 07:41 Sodium 139 138 Potassium 3.3 L 3.4 L Chloride 100 101 Carbon Dioxide 31 H 30 H BUN 19 18 Creatinine 0.96 0.91 Glucose 122 H 114 H Calcium 9.0 8.8 Cardiac Enzymes 05/12/19 Range/Units 06:08 Troponin I < 0.03 (< 0.04) ng/mL Liver Function 05/12/19 Range/Units 16:08 Total Bilirubin 1.7 H (0.3-1.0) mg/dL Direct Bilirubin 0.4 H (0.0-0.2) mg/dL AST 62 H (13-39) Units/L ALT 48 (7-52) Units/L Alkaline Phosphatase 130 H (34-104) Units/L Albumin 3.0 L (3.5-5.7) g/dL
[2019-05-13] MEDS: *HR* Glimepiride 2 MG TABLET PO SCH (10:19)
[2019-05-13] MEDS: *HR* Metformin 500 MG TABLET PO SCH ×2 (10:19→17:37)
[2019-05-13] MEDS: Spironolactone 25 MG TABLET PO SCH (10:19)
[2019-05-13] MEDS: Bumetanide 1 MG TABLET PO SCH ×2 (10:19→20:31)
[2019-05-13] MEDS: Lactulose Oral Soln 20 GM/30 ML UDC PO SCH ×4 (10:20→20:31)
--- NOTE | 2019-05-13 15:07 | Electrocardiograph Report ---
[place] [id number] Test Date: 2019-05-12 Pat Name: Jaleel Henriquez Department: EDP-14 Room: [facility] Gender: M [employer] Supervisor: : 1970 Requested By: Danelle Welsh Order Number: [id number] Reading MD: Theresa Chang Measurements Intervals [place] Rate: 90 P: 15 DC: 165 QRS: 39 QRSD: 95 T: 16 QT: 424 QTc: 519 Interpretive Statements Sinus rhythm Abnormal R-wave progression, early transition Prolonged QT interval Electronically Signed On 05-13-2019 15:05:43 EDT by Theresa Chang
[2019-05-14 05:05] LABS: Basophils # 0.1 K/mcL (0.0-0.2); Basophils % 1.2 %; Eosinophils # 0.3 K/mcL (0.0-0.6); Eosinophils % 7.1 %; Hematocrit 24.5 % (37.5-50.1); Hemoglobin 8.2 g/dL (12.9-16.9); Immature Granulocytes % 0.2 % (0-4); Lymphocytes % 24.8 %; Mean Corpuscular HGB Conc 33.5 g/dL (31.6-35.5); Mean Corpuscular Hemoglobin 34.6 pg (28.0-33.3); Mean Corpuscular Volume 103.4 fL (83.0-100.0); Monocytes # 0.5 K/mcL (0.0-1.3); Monocytes % 12.8 %; Neutrophils # 2.2 K/mcL (1.6-8.9); Platelet Count 86 K/mcL (140-400); Red Blood Count 2.37 M/mcL (4.19-5.50); Red Cell Distribution Width 16.1 % (11.5-14.5); Segmented Neutrophils % 53.9 %; White Blood Count 4.1 K/mcL (4.3-11.1)
[2019-05-14 05:24] LABS: Alanine Aminotransferase 50 Units/L (7-52); Albumin 2.8 g/dL (3.5-5.7); Alkaline Phosphatase 125 Units/L (34-104); Aspartate Amino Transferase 66 Units/L (13-39); BUN/Creatinine Ratio 15 (6-26); Bilirubin,Total 1.7 mg/dL (0.3-1.0); Blood Urea Nitrogen 14 mg/dL (6-20); Calcium 8.7 mg/dL (8.6-10.3); Carbon Dioxide 29 mEq/L (23-29); Chloride 101 mEq/L (98-107); Globulin 2.9 g/dL (2.4-3.5); Glucose 148 mg/dL (70-105); Osmolality,Calculated 291 (280-300); Potassium 2.9 mEq/L (3.5-5.1); Sodium 139 mEq/L (136-145); Total Protein 5.7 g/dL (6.4-8.9); eGFR For African Americans > 60 (> 60); eGFR For Non-African Americans > 60 (> 60)
[2019-05-14] MEDS ORDERED: *HR* Enoxaparin 40 MG/0.4 ML SYRINGE SQ SCH (06:00)
[2019-05-14] MEDS: Bumetanide 1 MG TABLET PO SCH (09:06)
[2019-05-14] MEDS: Spironolactone 25 MG TABLET PO SCH (09:06)
[2019-05-14] MEDS: *HR* Glimepiride 2 MG TABLET PO SCH (09:06)
[2019-05-14] MEDS: *HR* Metformin 500 MG TABLET PO SCH (09:07)
[2019-05-14] MEDS: Lactulose Oral Soln 20 GM/30 ML UDC PO SCH (09:08)
--- NOTE | 2019-05-14 10:45 | Discharge Summary ---
Date of Encounter: 05/14/19 Time of Encounter: 10:30 - Discharge Diagnosis (1) Hepatic encephalopathy Priority: Primary Status: Acute (2) Anemia Priority: Secondary Status: Chronic Qualifiers: Anemia type: unspecified type Qualified Code(s): D64.9 - Anemia, unspecified (3) DM type 2 (diabetes mellitus, type 2) Priority: Secondary Status: Chronic Qualifiers: Diabetes mellitus termite treater helper insulin use: without [place] [facility] use Diabetes mellitus complication status: without complication Qualified Code(s): E11.9 - Type 2 diabetes mellitus without complications Hospital course: Mr. Henriquez is a 49 year old male who was brought to emergency room with altered mental status. He had been discharged from [facility] May 07 following admission for hepatic encephalopathy. He was discharged on lactulose and rifaximin. It was documented there was concern for medical noncompliance leading to that admission. He was evaluated in emergency room and admitted to [facility] floor for ongoing care needs. Initial orders were written by the emergency room physician. I saw him on May 13 and performed a history and physical. He was given increased dose lactulose. Oral neomycin was added. Follow-up labs on May 14 showed ammonia essentially unchanged at 117 however his mental status had improved significantly and he appeared near his baseline. He was alert and talkative with appropriate conversation. He had no recollection of my visit the previous day. He felt stable for discharge home which I felt was reasonable. He will continue oral neomycin at discharge along with lactulose and rifaximin. He will be given a 1 week prescription of KCl 20 mEq bid. His PCP can monitor labs and adjust dose as needed. He will follow with his PCP Lissette Mayberry CNP within 1 week. He will follow with [facility] rn plastics and [facility] physicians as directed. - Time Spent with Patient Total time spent providing and/or coordinating discharge services: - Discharge Medications Prescriptions: New Neomycin Sulfate [Neomycin] 500 mg PO DAILY #30 tablet Potassium Chloride 20 meq PO BID #14 tab.er.prt Continued Ascorbate Calcium [Vitamin C] 500 mg PO QAM Glimepiride [Amaryl] 2 mg PO QAM Rifaximin [Xifaxan] 550 mg PO BID 30 Days #60 tablet Lactulose 30 gm PO QID Folic Acid 1 mg PO DAILY #30 tablet Thiamine (B-1) [Vitamin B-1] 100 mg PO DAILY #30 tablet Multivitamin [One Daily Multivitamin] 1 tab PO DAILY #30 tab Pantoprazole Sodium [Protonix] 40 mg PO BID Zinc Gluconate 100 mg PO BID Atorvastatin Calcium [Lipitor] 20 mg PO DAILY Ferrous Sulfate 325 mg PO DAILY #30 tablet metFORMIN [Glucophage] 500 mg PO BIDWM #60 tablet Bumetanide [Bumex] 2 mg PO BID Spironolactone [Aldactone] 100 mg PO DAILY Home Medications: Atorvastatin Calcium [Lipitor] 20 mg PO DAILY 12/03/18 [History] Pantoprazole Sodium [Protonix] 40 mg PO BID 12/03/18 [History] Zinc Gluconate 100 mg PO BID 12/03/18 [History] Ferrous Sulfate 325 mg PO DAILY #30 tablet 12/05/18 [Rx] metFORMIN [Glucophage] 500 mg PO BIDWM #60 tablet 12/05/18 [Rx] Ascorbate Calcium [Vitamin C] 500 mg PO QAM 03/16/19 [History] Glimepiride [Amaryl] 2 mg PO QAM 03/17/19 [History] Rifaximin [Xifaxan] 550 mg PO BID 30 Days #60 tablet 03/18/19 [Rx] Lactulose 30 gm PO QID 04/27/19 [History] Folic Acid 1 mg PO DAILY #30 tablet 05/07/19 [Rx] Multivitamin [One Daily Multivitamin] 1 tab PO DAILY #30 tab 05/07/19 [Rx] Thiamine (B-1) [Vitamin B-1] 100 mg PO DAILY #30 tablet 05/07/19 [Rx] Bumetanide [Bumex] 2 mg PO BID 05/12/19 [History] Spironolactone [Aldactone] 100 mg PO DAILY 05/12/19 [History] Neomycin Sulfate [Neomycin] 500 mg PO DAILY #30 tablet 05/14/19 [Rx] Potassium Chloride 20 meq PO BID #14 tab.er.prt 05/14/19 [Rx] Allergies/Adverse Reactions: Allergy/AdvReac Type Severity Reaction Status Date / Time No Known Allergies Allergy Verified 04/27/19 23:49 Date of admission: 05/13/19 10:03 Primary care physician: Lissette Mayberry [employer] - Constitutional Vitals: Temp Pulse Resp BP Pulse Ox 98.6 F 88 22 104/67 98 05/14/19 07:45 05/14/19 07:45 05/14/19 07:45 05/14/19 07:45 05/14/19 07:45 - Patient Status Disposition: Home, Self-Care Condition: Good - Discharge Instructions Follow Up With: NONE,PCP [Primary Care Provider] - 1 week - Diet and Activity Activity: resume usual activities as tolerated Diet: advance to your usual diet
[2019-05-14 18:50] VITALS: BP 104/67
== END 2019-05-14 11:15 | disposition home or self-care (01) | DRG 279 ==
LOC: INPPIK 15:38 → EMEROOPIK 15:38 → INPPIK 17:59
PROVIDERS: ADMIT Internal Medicine; ATTEND Internal Medicine